=== PATIENT | female | born 1950 | race Caucasian/White ===

== ENCOUNTER 2017-10-22 11:11 | Inpatient (IN) | payer MEDICARE ==
[2017-10-22] MEDS ORDERED: ONDANSETRON 4 MG/2 ML VIAL IVP STA (11:51)
[2017-10-22] MEDS ORDERED: SODIUM CHLORIDE 0.9% 1,000 ML IV STA ×2 (11:51)
[2017-10-22 13:00] LABS: Basophils % (A) 0 %; Eosinophils # (A) 0.1 k/uL (0-0.7); Eosinophils % (A) 1 %; HCT 44.6 % (34.0-46.0); HGB 13.8 gm/dL (11.4-16.0); Hypochromasia Marked; Lymphocytes # (A) 1.1 k/uL (1.0-4.8); Lymphocytes % (A) 11 %; MCH 29.7 pg (25.0-35.0); MCV 95.7 fL (80.0-100.0); Mean Platelet Volume 8.2; Monocytes # (A) 0.7 k/uL (0-1.0); Monocytes % (A) 6 %; Neutrophils # (A) 8.3 k/uL (1.3-7.7); Neutrophils % (A) 80 %; RBC 4.67 m/uL (3.80-5.40); RDW 15.3 % (11.5-15.5); WBC 10.4 k/uL (3.8-10.6)
[2017-10-22 13:01] LABS: Appearance,Urine Cloudy (Clear); Bacteria,Urine Rare /hpf; Bilirubin,Urine 2+ (Negative); Blood,Urine Small (Negative); Color,Urine Yellow; Glucose,Urine (UA) Negative (Negative); Ketones,Urine Trace (Negative); Leukocyte Esterase,Urine Moderate (Negative); Mucus,Urine Rare /hpf; Nitrite,Urine Negative (Negative); Protein,Urine 2+ (Negative); RBC,Urine 8 /hpf (0-5); Squamous Epithelial Cell,Urine 3 /hpf (0-4); WBC,Urine 13 /hpf (0-5)
[2017-10-22 13:25] LABS: Poikilocytosis (M) Present
[2017-10-22 13:26] LABS: Platelet Count 84 k/uL (150-450)
[2017-10-22 13:39] LABS: ALT 36 U/L (9-52); AST 29 U/L (14-36); Albumin 4.4 g/dL (3.5-5.0); Alkaline Phosphatase 129 U/L (38-126); Calcium 8.8 mg/dL (8.4-10.2); Chloride 113 mmol/L (98-107); Magnesium 2.1 mg/dL (1.6-2.3); Sodium 139 mmol/L (137-145); Total Bilirubin 0.3 mg/dL (0.2-1.3); Total Protein 8.1 g/dL (6.3-8.2)
--- NOTE | 2017-10-22 13:51 | ED ---
Dizziness HPI - General Chief Complaint: Dizziness Stated Complaint: kidney problem Time Seen by Provider: 10/22/17 11:30 Source: patient, family Mode of arrival: wheelchair Limitations: no limitations - History of Present Illness Initial Comments: 67 years O female comes in with the complaints of dizziness and low blood pressure up her pressure was 78/53 she said she has been on a very strict ketones diet for a few weeks now and now she feels very field blood pressure was low she is complaining about the back pain she does have a back pain no headaches no chest pain no shortness of breath has mild discomfort in the epigastric area and she had a diarrhea for the last 24 hours, Dr. Olmstead concern about the renal failure - Related Data Home Medications Medication Instructions Recorded Confirmed Allopurinol [Zyloprim] 300 mg PO DAILY 10/22/17 10/22/17 Aspirin EC [Ecotrin] 325 mg PO DAILY 10/22/17 10/22/17 Ergocalciferol (Vitamin D2) 50,000 unit PO Q7D 10/22/17 10/22/17 [Vitamin D2] Lisinopril [Prinivil] 20 mg PO DAILY 10/22/17 10/22/17 Lisinopril [Zestril] 20 mg PO DAILY 10/22/17 10/22/17 Meloxicam [Mobic] 7.5 mg PO BID 10/22/17 10/22/17 Spironolactone-Hctz 25-25Mg 1 tab PO DAILY 10/22/17 10/22/17 [Aldactazide 25-25Mg] glipiZIDE [Glucotrol] 5 mg PO AC-BID 10/22/17 10/22/17 metFORMIN HCL [Glucophage] 500 mg PO BID 10/22/17 10/22/17 Allergies Allergy/AdvReac Type Severity Reaction Status Date / Time erythromycin base Allergy Rash/Hives Verified 10/22/17 11:29 Penicillins Allergy Rash/Hives Verified 10/22/17 11:29 Review of Systems ROS Statement: Those systems with pertinent positive or pertinent negative responses have been documented in the HPI. ROS Other: All systems not noted in ROS Statement are negative. Past Medical History Past Medical History: Diabetes Mellitus, Hyperlipidemia, Hypertension History of Any Multi-Drug Resistant Organisms: None Reported Past Surgical History: Section Past Psychological History: No Psychological Hx Reported Smoking Status: Never smoker Past Alcohol Use History: None Reported Past Drug Use History: None Reported General Exam - General Exam Comments Initial Comments: General: The patient is awake and alert, in no obvious distress Skin: Skin is warm and dry and no rashes or lesions are noted. Eye: Pupils are equal, round and reactive to light, extra-ocular movements are intact; there is normal conjunctiva bilaterally. Ears, nose, mouth and throat: There are moist mucous membranes and no oral lesions. Neck: The neck is supple, there is no tenderness or JVD. Cardiovascular: There is a regular rate and rhythm. No murmur, rub or gallop is appreciated. Respiratory: To auscultation bilateral, crease breath sounds bilateral Gastrointestinal: Soft, non-distended, non-tender abdomen without masses or organomegaly noted. There is no rebound or guarding present. Bowel sounds are unremarkable. Back: There is no tenderness to palpation in the midline. There is no obvious deformity. Musculoskeletal: Normal ROM, no tenderness, There is no pedal edema. There is no calf tenderness or swelling. No cords were appreciated. Neurological: CN II-XII intact, Cranial nerves III through XII are intact. There are no obvious motor or sensory deficits. Coordination appears grossly intact. Speech is normal. Psychiatric: Cooperative, appropriate mood & affect, normal judgment. Limitations: no limitations Course Vital Signs 10/22/17 10/22/17 11:26 13:22 Temperature 97.4 F L 98.7 F Pulse Rate 89 95 Respiratory 18 18 Rate Blood Pressure 78/53 76/40 O2 Sat by Pulse 99 97 Oximetry EKG Findings - EKG Comments: EKG Findings:: EKG is normal sinus tachycardia ventricular rate is 101 MS interval is 150 QRS duration is 78 QT/QTc is 358/464 review of this EKG does not reveal any ST elevation or ST depression Medical Decision Making - Lab Data Result diagrams: 10/22/17 12:17 10/22/17 12:17 Lab Results 10/22/17 10/22/17 10/22/17 Range/Units 11:45 12:17 12:17 WBC 10.4 (3.8-10.6) k/uL RBC 4.67 (3.80-5.40) m/uL Hgb 13.8 (11.4-16.0) gm/dL Hct 44.6 (34.0-46.0) % MCV 95.7 (80.0-100.0) fL MCH 29.7 (25.0-35.0) pg MCHC 31.0 (31.0-37.0) g/dL RDW 15.3 (11.5-15.5) % Plt Count 84 L (150-450) k/uL Neutrophils % 80 % Lymphocytes % 11 % Monocytes % 6 % Eosinophils % 1 % Basophils % 0 % Neutrophils # 8.3 H (1.3-7.7) k/uL Lymphocytes # 1.1 (1.0-4.8) k/uL Monocytes # 0.7 (0-1.0) k/uL Eosinophils # 0.1 (0-0.7) k/uL Basophils # 0.0 (0-0.2) k/uL Manual Slide Review Performed Hypochromasia Marked Poikilocytosis (manual Present Sodium 139 (137-145) mmol/L Potassium 6.0 H (3.5-5.1) mmol/L Chloride 113 H (98-107) mmol/L Carbon Dioxide <5 L* (22-30) mmol/L Anion Gap mmol/L BUN 115 H* (7-17) mg/dL Creatinine 7.26 H* (0.52-1.04) mg/dL Est GFR (CKD-EPI)AfAm 6 (>60 ml/min/1.73 sqM) Est GFR (CKD-EPI)NonAf 5 (>60 ml/min/1.73 sqM) Glucose 43 L* (74-99) mg/dL Plasma Lactic Acid Buzz (0.7-2.0) mmol/L Calcium 8.8 (8.4-10.2) mg/dL Phosphorus 9.9 H* (2.5-4.5) mg/dL Magnesium 2.1 (1.6-2.3) mg/dL Total Bilirubin 0.3 (0.2-1.3) mg/dL AST 29 (14-36) U/L ALT 36 (9-52) U/L Alkaline Phosphatase 129 H (38-126) U/L Troponin I (0.000-0.034) ng/mL Total Protein 8.1 (6.3-8.2) g/dL Albumin 4.4 (3.5-5.0) g/dL Urine Color Yellow Urine Appearance Cloudy H (Clear) Urine pH 5.0 (5.0-8.0) Ur Specific [place] 1.020 (1.001-1.035) Urine Protein 2+ H (Negative) Urine Glucose (UA) Negative (Negative) Urine Ketones Trace H (Negative) Urine Blood Small H (Negative) Urine Nitrite Negative (Negative) Urine Bilirubin 2+ H (Negative) Urine Urobilinogen 3.0 (<2.0) mg/dL Ur Leukocyte Esterase Moderate H (Negative) Urine RBC 8 H (0-5) /hpf Urine WBC 13 H (0-5) /hpf Ur Squamous Epith Cells 3 (0-4) /hpf Urine Bacteria Rare H (None) /hpf Urine Mucus Rare H (None) /hpf 10/22/17 10/22/17 Range/Units 12:17 12:17 WBC (3.8-10.6) k/uL RBC (3.80-5.40) m/uL Hgb (11.4-16.0) gm/dL Hct (34.0-46.0) % MCV (80.0-100.0) fL MCH (25.0-35.0) pg MCHC (31.0-37.0) g/dL RDW (11.5-15.5) % Plt Count (150-450) k/uL Neutrophils % % Lymphocytes % % Monocytes % % Eosinophils % % Basophils % % Neutrophils # (1.3-7.7) k/uL Lymphocytes # (1.0-4.8) k/uL Monocytes # (0-1.0) k/uL Eosinophils # (0-0.7) k/uL Basophils # (0-0.2) k/uL Manual Slide Review Hypochromasia Poikilocytosis (manual Sodium (137-145) mmol/L Potassium (3.5-5.1) mmol/L Chloride (98-107) mmol/L Carbon Dioxide (22-30) mmol/L Anion Gap mmol/L BUN (7-17) mg/dL Creatinine (0.52-1.04) mg/dL Est GFR (CKD-EPI)AfAm (>60 ml/min/1.73 sqM) Est GFR (CKD-EPI)NonAf (>60 ml/min/1.73 sqM) Glucose (74-99) mg/dL Plasma Lactic Acid Buzz 0.7 (0.7-2.0) mmol/L Calcium (8.4-10.2) mg/dL Phosphorus (2.5-4.5) mg/dL Magnesium (1.6-2.3) mg/dL Total Bilirubin (0.2-1.3) mg/dL AST (14-36) U/L ALT (9-52) U/L Alkaline Phosphatase (38-126) U/L Troponin I <0.012 (0.000-0.034) ng/mL Total Protein (6.3-8.2) g/dL Albumin (3.5-5.0) g/dL Urine Color Urine Appearance (Clear) Urine pH (5.0-8.0) Ur Specific [place] (1.001-1.035) Urine Protein (Negative) Urine Glucose (UA) (Negative) Urine Ketones (Negative) Urine Blood (Negative) Urine Nitrite (Negative) Urine Bilirubin (Negative) Urine Urobilinogen (<2.0) mg/dL Ur Leukocyte Esterase (Negative) Urine RBC (0-5) /hpf Urine WBC (0-5) /hpf Ur Squamous Epith Cells (0-4) /hpf Urine Bacteria (None) /hpf Urine Mucus (None) /hpf Critical Care Time Total Critical Care Time: 45 Critical Care Time: Patient was reassessed at 1330, CBC is normal, troponin is normal at this point compress metabolic panel is still pending UTI likely lactate is 0.7 and she had 2 L of fluid blood pressure still quite low and also noticed her platelets are low and concerned about Michael dehydration and concerned about gram-negative sepsis she be treated with broad-spectrum antibiotics now and since she has not responded to the fluids and will put her on some appendectomy drip and she be admitted to the hospital under Dr. Olmstead's service reactive, he from some critical low level value said her sugar is 43 CO2 is less than 5 creatinine is 7.26 BUN is 25 potassium is 6.1, this evening and will repeat all these labs will start her on now nor appendectomy drip because in spite of for 2 L of fluid her blood pressure has not gone higher than 80 systolic she be admitted to Dr. Olmstead's service, she will need to go to the ICU. Considering her low blood sugar patient was given an ampule dex 50 Disposition Clinical Impression: Acute kidney failure, Hypotension, Metabolic acidosis, Hypoglycemia Disposition: ADMITTED IP TO THIS HOSP Condition: Good Referrals: Al Olmstead MD [Primary Care Provider] - 1-2 days
[2017-10-22 13:53] LABS: Phosphorus 9.9 mg/dL (2.5-4.5)
[2017-10-22 13:54] LABS: Blood Urea Nitrogen 115 mg/dL (7-17); Carbon Dioxide <5 mmol/L (22-30); Glucose 43 mg/dL (74-99)
[2017-10-22] MEDS ORDERED: NALOXONE 0.4 MG/ML 1 ML VIAL IV PRN (13:58)
[2017-10-22] MEDS ORDERED: DEXTROSE 50%-WATER 50 ML SYRINGE IVP STA (14:02)
--- NOTE | 2017-10-22 14:03 | XR ---
EXAMINATION TYPE: XR chest 2V DATE OF EXAM: 10/22/2017 COMPARISON: NONE HISTORY: Hypotension and shortness of breath. Possible pneumonia. TECHNIQUE: Frontal and lateral views of the chest are obtained. FINDINGS: Opiate soft tissues partially obscure the lower lungs. Retrocardiac opacity is linear and f avored to represent atelectasis. Moderate multilevel degenerative changes of the thoracic spine are n oted. There is no pleural effusion or pneumothorax seen. The cardiac silhouette size is within norm al limits. The osseous structures are intact. IMPRESSION: Retrocardiac opacity on the lateral image overlying the thoracic spine is linear and fav ored to represent atelectasis, however early pneumonia is possible in the appropriate clinical settin g.
[2017-10-22] MEDS ORDERED: SODIUM CHLORIDE 0.9% 1,000 ML IV ONE (14:04)
[2017-10-22] MEDS ORDERED: cefTRIAXone 2,000 MG in SODIUM CHLORIDE 0.9% 100 ML IVPB STA (14:07)
[2017-10-22] MEDS ORDERED: cefTRIAXone IN SWFI 2,000 MG/20 ML SYRINGE IVP STA (14:10)
[2017-10-22] MEDS: NOREPINEPHRIN 4 MG-0.9% NS PMX 4 MG/250 ML ML IV SCH ×2 (14:27→21:48)
[2017-10-22 14:45] LABS: Glucose,Whole Blood 94 mg/dL (75-99)
[2017-10-22] MEDS ORDERED: ERGOCALCIFEROL 50,000 UNIT CAP PO SCH (15:00)
[2017-10-22 15:33] LABS: Glucose,Whole Blood 95 mg/dL (75-99)
[2017-10-22] MEDS ORDERED: ONDANSETRON 4 MG/2 ML VIAL IVP PRN (15:36)
--- NOTE | 2017-10-22 15:38 | P.HPIM ---
History of Present Illness H&P Date: 10/22/17 Chief Complaint: Not feeling well This is a 67-year-old female with a known past medical history of diabetes mellitus type 2, hyperlipidemia and hypertension. Patient has been on a keto diet for the last month. Patient reports that she tried this diet on her own. On Thursday patient started to really not feel well. She complained of nausea and dizziness headache and started to have diarrhea. Patient reports having multiple loose watery stools. She has not been on antibiotics recently. She continued to take her blood sugar and blood pressure medications. She does not check blood sugar or BP at home. Patient's symptoms continued to worsen she went to see Dr. Olmstead in the office and was sent to the emergency room. Patient will be admitted to the ICU. She also had complained of some lower back pain and also decrease in urine production. She reports making a small amount of urine this morning. Patient has been admitted to the hospital for acute renal failure. Creatinine was 7.26 and BUN was 1:15. She was also hypoglycemic with a blood sugar of 43. She received an amp of dextrose. Repeat blood sugar is 94. Potassium 6 chloride 113 CO2 less than 5 lactic acid 0.7 phosphorus 9.9 platelets 84. Patient denies any signs or symptoms of bleeding. She did have evidence of a UTI. She was started on Rocephin. Urine culture pending. Patient was hypotensive and has received a total of 2 L through fluid boluses. And she is currently on 10 mics of levo. Chest x-ray showing a retrocardiac opacity on the lateral image overlying the thoracic spine and favored to represent atelectasis, however early pneumonia is possible. Patient denies any cough fever chills or sweats. Patient has been admitted to the ICU and nephrology and critical care services have been consulted. Review of Systems Please refer to HPI otherwise unremarkable Past Medical History Past Medical History: Diabetes Mellitus, Hyperlipidemia, Hypertension History of Any Multi-Drug Resistant Organisms: None Reported Past Surgical History: Section Past Psychological History: No Psychological Hx Reported Smoking Status: Never smoker Past Alcohol Use History: None Reported Past Drug Use History: None Reported Medications and Allergies Home Medications Medication Instructions Recorded Confirmed Type Allopurinol [Zyloprim] 300 mg PO DAILY 10/22/17 10/22/17 History Aspirin EC [Ecotrin] 325 mg PO DAILY 10/22/17 10/22/17 History Ergocalciferol (Vitamin D2) 50,000 unit PO Q7D 10/22/17 10/22/17 History [Vitamin D2] Lisinopril [Prinivil] 20 mg PO DAILY 10/22/17 10/22/17 History Lisinopril [Zestril] 20 mg PO DAILY 10/22/17 10/22/17 History Meloxicam [Mobic] 7.5 mg PO BID 10/22/17 10/22/17 History Spironolactone-Hctz 25-25Mg 1 tab PO DAILY 10/22/17 10/22/17 History [Aldactazide 25-25Mg] glipiZIDE [Glucotrol] 5 mg PO AC-BID 10/22/17 10/22/17 History metFORMIN HCL [Glucophage] 500 mg PO BID 10/22/17 10/22/17 History Allergies Allergy/AdvReac Type Severity Reaction Status Date / Time erythromycin base Allergy Rash/Hives Verified 10/22/17 11:29 Penicillins Allergy Rash/Hives Verified 10/22/17 11:29 Physical Exam Vitals: Vital Signs Temp Pulse Resp BP Pulse Ox 10/22/17 14:22 82 81/39 10/22/17 14:06 85 16 76/38 100 10/22/17 13:22 98.7 F 95 18 76/40 97 10/22/17 11:26 97.4 F L 89 18 78/53 99 Intake and Output 10/22/17 10/22/17 10/22/17 06:59 14:59 22:59 Other: Weight 129.274 kg Head normocephalic Neck supple Lungs clear to auscultation bilaterally no wheezing or crackles Heart regular rate and rhythm S1-S2, no rub or gallop Abdomen is soft mild epigastric tenderness nondistended positive bowel sounds no hepatosplenomegaly Extremities no edema Neuro alert and orientated to 3 Results CBC & Chem 7: 10/22/17 12:17 10/22/17 12:17 Labs: Abnormal Lab Results - Last 24 Hours (Table) 10/22/17 10/22/17 10/22/17 Range/Units 11:45 12:17 12:17 Plt Count 84 L (150-450) k/uL Neutrophils # 8.3 H (1.3-7.7) k/uL Potassium 6.0 H (3.5-5.1) mmol/L Chloride 113 H (98-107) mmol/L Carbon Dioxide <5 L* (22-30) mmol/L BUN 115 H* (7-17) mg/dL Creatinine 7.26 H* (0.52-1.04) mg/dL Glucose 43 L* (74-99) mg/dL Phosphorus 9.9 H* (2.5-4.5) mg/dL Alkaline Phosphatase 129 H (38-126) U/L Urine Appearance Cloudy H (Clear) Urine Protein 2+ H (Negative) Urine Ketones Trace H (Negative) Urine Blood Small H (Negative) Urine Bilirubin 2+ H (Negative) Ur Leukocyte Esterase Moderate H (Negative) Urine RBC 8 H (0-5) /hpf Urine WBC 13 H (0-5) /hpf Urine Bacteria Rare H (None) /hpf Urine Mucus Rare H (None) /hpf Assessment and Plan Assessment: 1. Acute kidney injury: Creatinine 7.6 BUN 115. Patient is receiving IV fluids. Nephrology and critical care services has been consulted. Possibly secondary to diarrhea and medications. Metformin, Aldactazide, Mobic, lisinopril, and allopurinol have all been discontinued 2. Severe Metabolic acidosis: CO2 less than 5 likely related to patient's diarrhea. 3. Hypoglycemia: Possibly related to the keto diet as well as taking the metformin and glipizide. Diabetic medications have been discontinued. Place patient on Accu-Cheks. Patient received an amp of dextrose in the ER. Repeat blood sugar 94 4. Hypotensive likely related to volume depletion and blood pressure medications. Continue with IV fluids Continue IV fluids and levo. 5. UTI: Place patient on Rocephin. Check urine culture 6. Diarrhea check stool for C. diff 7. Hyperkalemia likely related to patient's acute kidney injury and the spironolactone. Nephrology consulted 8. Hyperphosphatemia: Secondary to acute kidney injury. Await nephrology recommendations 9. Thrombocytopenia: Exact etiology unclear. No evidence of bleeding. Possibly related to the acute UTI infection. Repeat labs in a.m. 10. History of diabetes mellitus type 2 11. History of essential hypertension 12. History of gout due to her acute kidney injury will hold the allopurinol 13. Morbid obesity: BMI 55.7 GI prophylaxis Protonix and DVT prophylaxis SCDs. Time with Patient: Greater than 30 (Greater than 60% of the total time spent in counseling and coordination of care.I performed an examination of the patient and discussed their management with the physician Gas Operator. I have reviewed the Physician Gas Operator's notes and agree with the documented findings and plan of care)
[2017-10-22 16:08] LABS: Glucose,Whole Blood 126 mg/dL (75-99)
[2017-10-22] MEDS ORDERED: SODIUM CHLORIDE 0.9% 2,000 ML IV ONE (16:08)
[2017-10-22] MEDS ORDERED: SODIUM BICARB 8.4% 50 ML SYR (1 MEQ/ML) IV STA (16:13)
[2017-10-22 16:19] LABS: ALT 44 U/L (9-52); AST 37 U/L (14-36); Albumin 4.1 g/dL (3.5-5.0); Alkaline Phosphatase 130 U/L (38-126); Amylase 167 U/L (30-110); Calcium 8.2 mg/dL (8.4-10.2); Chloride 112 mmol/L (98-107); Glucose 116 mg/dL (74-99); Lipase 916 U/L (23-300); Magnesium 1.9 mg/dL (1.6-2.3); Potassium 6.1 mmol/L (3.5-5.1); Sodium 139 mmol/L (137-145); Total Bilirubin 0.3 mg/dL (0.2-1.3); Total Protein 7.5 g/dL (6.3-8.2)
[2017-10-22 16:29] LABS: Phosphorus 9.2 mg/dL (2.5-4.5)
[2017-10-22 16:30] LABS: Blood Urea Nitrogen 112 mg/dL (7-17); Carbon Dioxide <5 mmol/L (22-30)
[2017-10-22] MEDS ORDERED: DEXTROSE 5% IN WATER 1,000 ML with SODIUM BICARB (1 MEQ/ML) 150 ML IV ONE (16:30)
--- NOTE | 2017-10-22 17:04 | P.CNPUL ---
History of Present Illness Consult date: 10/22/17 Chief complaint: Generalized weakness, dehydration and electrode disturbance History of present illness: A 67-year-old female patient, morbidly obese, BMI 55.7, diabetic along with history of hypertension and hyperlipidemia presented to her primary care physician's office because of generalized weakness, dehydration, diarrhea and drop in urine output. At the same time the patient was having increased nausea and dizziness and headache and feeling sick in general. The patient was immediately sent to the emergency department and the patient was found to have markedly abnormalities in her blood work. First of all, the patient was found to be hypothermic, hypotensive with a systolic in the mid 70s, and electrolytes showing a serum bicarb level of less than 5, potassium level of 6.0, and acute kidney injury with a creatinine of 7.26 with a BN of 115 and the patient's blood sugar was 43. Apparently, the patient was on a ketotic diet that she had been implementing over the past or weeks. Along with this diet the patient was able to lose around 24 pounds. She did not get the advisability dilatation. She'll obtain this diet BY herself and she was cutting her carbs and cancer treating mainly on protein rich foods. Approximately a week ago she started having these symptoms in her condition progressively got worse. In addition she started developing diarrhea and she reports liquid diarrhea around once every 2-3 hours and it got worse over this past few days. She became extremely dehydrated. Note that she is also on LISA inhibitor's for blood pressure control. With all these issues, she presented to the hospital. No chest pain. No angina. No pleurisy. No cough or sputum production. She had drop in urine output. The Bingham catheter was inserted initially urine output was minimal. No history of alcoholism. Substance abuse. She is on metformin for blood sugar control. Hypoglycemia was treated with D50 pushes which brought up her blood sugars nicely. The patient urinalysis showed only trace ketones. There was +2 glucose and a white cells. Chest x-ray reveals a segmental atelectatic changes and left lung base. Underlying pneumonia is felt to be less likely. She is receiving external warming. She received a total of 2 L of IV fluid in the emergency department and currently she is being placed on a bicarb infusion. The external warming has been done and the patient's temperature is, 97. She is awake and alert and she is following commands and answering questions appropriately. No altered mentation. No syncope. No loss in consciousness. No falls. No wounds in lower extremities. No open sores. No other complaints other things mentioned above. She has a remote history of colon cancer with a previous colectomy for chemotherapy and [place] [facility]. Hemodynamically, the patient is currently receiving IV fluids. She had to be placed on pressors and currently she is on 70 mics of norepinephrine infusion which is being infused in Her right upper extremity. We will able to wean off the pressors and the patient is producing adequate amount of urine output. Review of Systems Constitutional: Reports fatigue, Reports lethargy, Reports weakness, Reports weight loss Eyes: denies blurred vision, denies bulging eye, denies decreased vision Ears: deny: decreased hearing, ear discharge, earache Ears, nose, mouth and throat: Denies headache, Denies sore throat Cardiovascular: Reports dyspnea on exertion Respiratory: Reports dyspnea Gastrointestinal: Reports diarrhea, Reports nausea Genitourinary: Denies dysuria, Denies hematuria Musculoskeletal: Reports as per HPI Musculoskeletal: absent: ankle pain, ankle stiffness, ankle swelling Integumentary: Denies pruritus, Denies rash Neurological: Reports weakness Psychiatric: Denies anxiety, Denies depression Endocrine: Denies fatigue, Denies weight change Hematologic/Lymphatic: Reports as per HPI Allergic/Immunologic: Reports as per HPI Past Medical History Past Medical History: Diabetes Mellitus, Hyperlipidemia, Hypertension Additional Past Medical History / Comment(s): Morbid obesity, diabetes mellitus , hypertension, hyperlipidemia, colon cancer status post colectomy followed by systemic chemotherapy in 2000, acid reflux and heartburn, nephrolithiasis History of Any Multi-Drug Resistant Organisms: None Reported Past Surgical History: Section Additional Past Surgical History / Comment(s): "stated 1/3 of colon removed 2000 d/t cancer", [facility] chest-since removed, colonoscopy, x3 c-sections Past Anesthesia/Blood Transfusion Reactions: No Reported Reaction Smoking Status: Never smoker - Past Family History Mother Family Medical History: Dementia Additional Family Medical History / Comment(s): low bp Father Family Medical History: Diabetes Mellitus Medications and Allergies Home Medications Medication Instructions Recorded Confirmed Type Allopurinol [Zyloprim] 300 mg PO DAILY 10/22/17 10/22/17 History Aspirin EC [Ecotrin] 325 mg PO DAILY 10/22/17 10/22/17 History Ergocalciferol (Vitamin D2) 50,000 unit PO Q7D 10/22/17 10/22/17 History [Vitamin D2] Lisinopril [Prinivil] 20 mg PO DAILY 10/22/17 10/22/17 History Lisinopril [Zestril] 20 mg PO DAILY 10/22/17 10/22/17 History Meloxicam [Mobic] 7.5 mg PO BID 10/22/17 10/22/17 History Spironolactone-Hctz 25-25Mg 1 tab PO DAILY 10/22/17 10/22/17 History [Aldactazide 25-25Mg] glipiZIDE [Glucotrol] 5 mg PO AC-BID 10/22/17 10/22/17 History metFORMIN HCL [Glucophage] 500 mg PO BID 10/22/17 10/22/17 History Allergies Allergy/AdvReac Type Severity Reaction Status Date / Time erythromycin base Allergy Rash/Hives Verified 10/22/17 11:29 Penicillins Allergy Rash/Hives Verified 10/22/17 11:29 Physical Exam Vitals: Vital Signs Temp Pulse Resp BP Pulse Ox 10/22/17 16:00 81 26 H 101/65 10/22/17 15:45 84 30 H 88/43 10/22/17 15:30 93.6 F L 95 29 H 88/43 100 10/22/17 15:15 91 30 H 100/37 100 10/22/17 14:45 97.8 F 10/22/17 14:22 82 81/39 10/22/17 14:06 85 16 76/38 100 10/22/17 13:22 98.7 F 95 18 76/40 97 10/22/17 11:26 97.4 F L 89 18 78/53 99 Intake and Output 10/22/17 10/22/17 10/22/17 06:59 14:59 22:59 Intake Total 1000 Output Total 50 Balance 950 Intake: IV 1000 Sodium Chloride 0.9% 1, 1000 000 ml @ 999 mls/hr IV . Q1H1M ONE Rx#:[id number] Output: Urine 50 Other: Weight 129.274 kg Gen. appearance the patient is morbidly obese, comfortable alert and awake following commands and answering questions appropriately. 9 acute respiratory distress. Head exam was generally normal. There was no scleral icterus or corneal arcus. Mucous membranes were moist. Neck is supple and there is significant crowding of the posterior pharynx typical of an underlying obstructive sleep apnea. Lungs were clear to auscultation and percussion, and with normal diaphragmatic excursion. No wheezes or rales were noted. Breath sounds are diminished in lung bases bilaterally. Cardiac exam revealed the PMI to be normally situated and sized. The rhythm was regular and no extrasystoles were noted during several minutes of auscultation. The first and second heart sounds were normal and physiologic splitting of the second heart sound was noted. There were no murmurs, rubs, clicks, or gallops. Abdomen the patient is morbidly obese and orders cannot be accurately palpated. There is no direct tenderness, rebound tenderness or guarding at this point. Examination of the extremities revealed easily palpable radial, femoral and pedal pulses. There was no cyanosis, clubbing or edema. Examination of the skin revealed no evidence of significant rashes, suspicious appearing nevi or other concerning lesions. Neurologically the patient is awake and alert and is no focal neurological deficits in the creatinine nerves are intact. Results - Laboratory Findings CBC and BMP: 10/22/17 12:17 10/22/17 15:46 Abnormal lab findings: Abnormal Labs 10/22/17 10/22/17 10/22/17 11:45 12:17 12:17 Plt Count 84 L Neutrophils # 8.3 H Potassium 6.0 H Chloride 113 H Carbon Dioxide <5 L* BUN 115 H* Creatinine 7.26 H* Glucose 43 L* POC Glucose (mg/dL) Calcium Phosphorus 9.9 H* AST Alkaline Phosphatase 129 H Amylase Lipase Urine Appearance Cloudy H Urine Protein 2+ H Urine Ketones Trace H Urine Blood Small H Urine Bilirubin 2+ H Ur Leukocyte Esterase Moderate H Urine RBC 8 H Urine WBC 13 H Urine Bacteria Rare H Urine Mucus Rare H 10/22/17 10/22/17 15:46 16:04 Plt Count Neutrophils # Potassium 6.1 H Chloride 112 H Carbon Dioxide <5 L* BUN 112 H* Creatinine 6.61 H* Glucose 116 H POC Glucose (mg/dL) 126 H Calcium 8.2 L Phosphorus 9.2 H* AST 37 H Alkaline Phosphatase 130 H Amylase 167 H Lipase 916 H Urine Appearance Urine Protein Urine Ketones Urine Blood Urine Bilirubin Ur Leukocyte Esterase Urine RBC Urine WBC Urine Bacteria Urine Mucus - Diagnostic Findings Chest x-ray: image reviewed Assessment and Plan Plan: Assessment 1 acute kidney injury, multifactorial. The patient was excessively dehydrated probably related to diarrhea. In addition the patient was taken LISA inhibitor and occasional nonsteroidal anti-inflammatory medication. Currently she is an acute kidney injury at she is nonoliguric and the patient's urine output is improving with fluid resuscitation and pressors 2 acute hypotension, most likely hypovolemic in nature and the patient is point IV fluids and she is also on 70 mics of norepinephrine infusion for blood pressure control. 3 acute hyperkalemia without any acute EKG changes secondary to above 4 acute diarrhea with liquidy bowel movement. No history of any antibiotic intake. 5 severe with doubling acidosis with a component of anion and anion gap metabolic acidosis, will be started on a bicarb drip 6 morbid obesity with a BMI 55.7 7 ketotic diet for weight loss 8 hypoglycemia probably related to metformin effect in the setting of renal failure, treated 9 hypertension, per history 10 diabetes mellitus type 2, per history 11 thrombocytopenia 12 atelectatic changes and left lung base, pneumonia doubtful 13 hypothermia, receiving external warming with subsequent improvement in the body temperature 14 colon cancer with a previous colectomy followed by systemic chemotherapy and the patient is in remission Plan Continue fluid resuscitation. The patient will be receiving D5 bicarb infusion rate of 150 mL an hour. She already received 2 L of IV fluids and she'll be receiving a amp of IV sodium bicarb push. We'll monitor the electrolytes. We' ll monitor the potassium level. Potassium level is still elevated yet is not causing any cardiac toxicity and anticipate potassium level is improved with improvement of her acidosis. The hypoglycemia was treated. The patient's blood sugars improved and the patient will be on a D5 bicarb infusion. We'll monitor the electrolytes. Monitor the metabolic acidosis. Monitor body temperature. Empiric antibiotic coverage with Rocephin. Check stool for C. difficile to patient continues to have diarrhea. Monitor phosphorus levels. Obtain ultrasound of the kidneys. Keep the Bingham catheter in place and monitor the urine output. Keep pressors and gradually wean it down. I suggested a triple lumen catheter insertion and the patient was against the idea despite me explaining to her the advantages of having alignment this. We'll establish a second and third line if possible, essentially peripheral lines and we'll insert a triple lumen catheter if this become an absolute medical necessity. We should be able to manage her right now with peripheral lines as long as the pressor doses is not quite high and the patient is improving with improvement in urine output. Check thyroid function tests. Check cardiac enzymes. We'll continue to follow. Time with Patient: Greater than 30
[2017-10-22] MEDS ORDERED: glipiZIDE 5 MG TAB PO SCH (17:30)
--- NOTE | 2017-10-22 17:55 | US ---
EXAMINATION TYPE: US kidneys/renal and bladder DATE OF EXAM: 10/22/2017 COMPARISON: NONE CLINICAL HISTORY: LITA. Acute renal failure severe metabolic acidosis. Exam limitations due to body haney bitus and patient unable to roll. EXAM MEASUREMENTS: Right Kidney: 10.2 x 5.1 x 4.8 cm Left Kidney: 10.5 x 5.9 x 5.2 cm Right Kidney: No hydronephrosis or masses seen Left Kidney: Lobulated cortex no hydronephrosis seen. Bladder: Patient has cathter in. IMPRESSION: No evidence of renal mass or obstruction. No significant atrophy.
--- NOTE | 2017-10-22 18:24 | XR ---
EXAMINATION TYPE: XR chest 1V portable DATE OF EXAM: 10/22/2017 COMPARISON: Today HISTORY: Line placement TECHNIQUE: Single frontal view of the chest is obtained. FINDINGS: There is right jugular catheter with the tip over the right atrium. There is no pneumothor ax. Lungs are clear of consolidation. There is no heart failure. IMPRESSION: Catheter tip appears in good position.
--- NOTE | 2017-10-22 18:25 | OP ---
OPERATIVE REPORT TRIPLE LUMEN CATHETER PLACEMENT: Indication Hemodynamic monitoring/Intravenous access. PREOPERATIVE DIAGNOSIS: Hypovolemic shock. POSTOPERATIVE DIAGNOSIS: Hypovolemic shock. A time-out was completed verifying correct patient, procedure, site, positioning, and implant(s) or special equipment if applicable. The patient was placed in a dependent position appropriate for triple lumen catheter placement based on the vein to be cannulated. The patient's right neck was prepped and draped in sterile fashion. 1% Lidocaine was used to anesthetize the surrounding skin area. A triple lumen 9F Cordis catheter was introduced into the right internal jugular vein using Seldinger technique. The catheter was threaded smoothly over the guide wire and appropriate blood return was obtained. Each lumen of the catheter was evacuated of air and flushed with sterile saline. The catheter was then sutured in place to the skin and a sterile dressing applied. Perfusion to the extremity distal to the point of catheter insertion was checked and found to be adequate. Chest x-ray showed no complications, no pneumothorax. MMODL / IJN: [id number] /
[2017-10-22 18:33] LABS: Glucose,Whole Blood 153 mg/dL (75-99)
[2017-10-22 20:04] LABS: Glucose,Whole Blood 154 mg/dL (75-99)
[2017-10-22] MEDS: HEPARIN SODIUM,PORCINE 5,000 UNIT/ML 1 ML VIAL SQ SCH (20:45)
[2017-10-22 22:18] LABS: Basophils % (A) 0 %; Eosinophils # (A) 0.1 k/uL (0-0.7); Eosinophils % (A) 1 %; HGB 12.1 gm/dL (11.4-16.0); Hypochromasia Marked; Lymphocytes % (A) 13 %; MCH 29.6 pg (25.0-35.0); MCV 95.6 fL (80.0-100.0); Mean Platelet Volume 7.7; Monocytes # (A) 0.6 k/uL (0-1.0); Monocytes % (A) 7 %; Neutrophils # (A) 5.9 k/uL (1.3-7.7); Neutrophils % (A) 77 %; Platelet Count 94 k/uL (150-450); RBC 4.08 m/uL (3.80-5.40); RDW 15.2 % (11.5-15.5); WBC 7.6 k/uL (3.8-10.6)
[2017-10-22 22:29] LABS: Albumin 3.2 g/dL (3.5-5.0); Calcium 7.5 mg/dL (8.4-10.2); Magnesium 1.7 mg/dL (1.6-2.3); Total Bilirubin 0.3 mg/dL (0.2-1.3); Total Protein 6.2 g/dL (6.3-8.2)
[2017-10-22 22:31] LABS: Phosphorus 6.5 mg/dL (2.5-4.5); Potassium 4.9 mmol/L (3.5-5.1)
[2017-10-23 00:22] LABS: Glucose,Whole Blood 91 mg/dL (75-99)
[2017-10-23] MEDS: HEPARIN SODIUM,PORCINE 5,000 UNIT/ML 1 ML VIAL SQ SCH ×4 (02:13→23:19)
[2017-10-23 04:30] LABS: Glucose,Whole Blood 113 mg/dL (75-99)
[2017-10-23 04:58] LABS: Basophils % (A) 0 %; Eosinophils # (A) 0.1 k/uL (0-0.7); Eosinophils % (A) 1 %; HGB 11.9 gm/dL (11.4-16.0); Lymphocytes % (A) 15 %; MCH 29.5 pg (25.0-35.0); MCHC 32.1 g/dL (31.0-37.0); MCV 91.8 fL (80.0-100.0); Mean Platelet Volume 8.1; Monocytes # (A) 0.5 k/uL (0-1.0); Monocytes % (A) 8 %; Neutrophils # (A) 4.8 k/uL (1.3-7.7); Neutrophils % (A) 74 %; Platelet Count 105 k/uL (150-450); RBC 4.03 m/uL (3.80-5.40); RDW 15.3 % (11.5-15.5); WBC 6.4 k/uL (3.8-10.6)
[2017-10-23] MEDS: DEXTROSE 5% IN WATER 1,000 ML with SODIUM BICARB (1 MEQ/ML) 150 ML IV SCH ×2 (05:09→15:45)
[2017-10-23 05:10] LABS: Calcium 8.1 mg/dL (8.4-10.2); Magnesium 1.7 mg/dL (1.6-2.3); Phosphorus 5.6 mg/dL (2.5-4.5); Potassium 4.8 mmol/L (3.5-5.1)
[2017-10-23 05:44] LABS: Hemoglobin A1C 5.6 % (4.0-6.0)
[2017-10-23] MEDS: NOREPINEPHRIN 4 MG-0.9% NS PMX 4 MG/250 ML ML IV SCH (06:41)
--- NOTE | 2017-10-23 07:35 | XR ---
EXAMINATION TYPE: XR chest 1V DATE OF EXAM: 10/23/2017 CLINICAL HISTORY: Difficulty breathing progress study. TECHNIQUE: Single AP portable upright view of the chest is obtained. COMPARISON: Chest x-ray from one day earlier and older studies. FINDINGS: There is right internal jugular central venous catheter terminating in right atrium. There is persistent cardiomegaly with perhaps mild central vascular congestion and patchy left basilar ate lectatic change. No large pleural effusion or pneumothorax is seen bilaterally. Right lung is clear. Osseous structures are intact. Ectatic and atherosclerotic aorta is redemonstrated. IMPRESSION: Overall stable findings, cardiomegaly with perhaps mild central vascular congestion and patchy left basilar atelectatic change. Correlate for CHF exacerbation.
[2017-10-23 08:07] LABS: Glucose,Whole Blood 177 mg/dL (75-99)
[2017-10-23] MEDS: PANTOPRAZOLE 40 MG TABLET PO SCH (08:07)
[2017-10-23] MEDS: cefTRIAXone IN SWFI 1,000 MG/10 ML SYRINGE IVP SCH (08:07)
[2017-10-23] MEDS: ASPIRIN 325 MG TAB PO SCH (08:07)
--- NOTE | 2017-10-23 08:50 | CONS ---
CONSULTATION REASON FOR CONSULT: Severe metabolic acidosis, renal failure and hyperkalemia. HISTORY OF PRESENT ILLNESS: The patient is a 67-year-old female with history of obesity, who was on a ketogenic diet for about a month. The patient does have underlying history of diabetes. She was admitted to the hospital with complaints of increased weakness. Patient was also having dizziness. She had some diarrhea and did not feel good. She was found to have serum creatinine of 7.26 on initial admission. Her CO2 was less than 5 and potassium was 6.0 on initial admission. The patient has been admitted to the ICU. She was also hypotensive, currently on 10 mcg of Levophed. There is suggestion of a urinary tract infection. The patient is maintained on bicarb drip. She has had good urine output. Serum creatinine is down to 3.3 now. CO2 is up to 8 on labs. Overall, patient states she is feeling better. PAST MEDICAL HISTORY: Type 2 diabetes, hypertension, obesity, hyperlipidemia. PAST SURGICAL HISTORY: . SOCIAL HISTORY: Social history is negative for smoking, drug abuse or alcohol abuse. MEDICATIONS: Medications at home included Zyloprim, Ecotrin, Prinivil, Mobic, Zestril, Glucotrol, Glucophage, and Aldactazide. ALLERGIES: Allergies include PENICILLIN and ERYTHROMYCIN, both of which cause rash and hives. REVIEW OF SYSTEMS: As per HPI. Other systems negative. PHYSICAL EXAMINATION: On examination, patient is currently comfortable, awake, alert, and oriented x3, not in any acute distress. Blood pressure is 103/63, heart rate 107 per minute. Patient is afebrile. EXAMINATION OF THE HEART: S1, S2. EXAMINATION OF THE LUNGS: Bilateral breath sounds are heard. Abdomen is soft, nontender, obese. Examination of lower extremities shows no evidence of edema. [employer] exam is intact. Patient moving all 4 extremities. LAB: Labs show sodium 142, potassium 4.8, chloride 118, CO2 is 8, BUN 93, serum creatinine 3.3, phosphorus 5.6, magnesium 1.7. Albumin 3.2. UA shows 2+ protein, trace blood, WBCs 13. Chest x-ray on admission shows retrocardiac opacity on the lateral image suggestive of atelectasis, possible pneumonia. Ultrasound of the kidneys showed no evidence of hydronephrosis or stones. ASSESSMENT: 1. Acute kidney injury secondary to hypotension hypoperfusion in the setting of use of LISA inhibitors along with the NSAIDs as well prior to admission. Renal function is now improving. Patient is nonoliguric. Continue with aggressive IV hydration. 2. Severe metabolic acidosis, multifactorial, including the renal failure, diarrhea with gastrointestinal fluid loss as well as the extreme ketogenic diet that patient was recently on. Her urine was positive for ketones. She is currently maintained on IV bicarb and her acidosis is improving. 3. Hyperkalemia associated with acute kidney injury, use of LISA inhibitors and NSAIDs, now improved. 4. Hyperphosphatemia associated with renal failure also improving with improving renal function. 5. Hypotension associated with hypovolemia and underlying infection. 6. Sepsis secondary to either pneumonia or urinary tract infection, maintained on empiric antibiotics. 7. Type 2 diabetes. 8. Obesity on ketogenic diet for about 1 month prior to admission. PLAN: Continue IV bicarb. Continue to avoid NSAIDs and LISA inhibitors. Avoid other nephrotoxic agents. The patient is advised to avoid NSAIDs and hold off on the ketogenic diet for now. Thank you for this consultation. We will continue to follow the patient with you during her hospitalization. MMODL / IJN: [id number] /
[2017-10-23] MEDS ORDERED: LISINOPRIL 20 MG TAB PO SCH (09:00)
[2017-10-23] MEDS ORDERED: ALLOPURINOL 300 MG TAB PO SCH (09:00)
[2017-10-23 09:12] LABS: Amylase 116 U/L (30-110); Lipase 725 U/L (23-300)
[2017-10-23] MEDS: INSULIN ASPART 100 UNIT/ML 1 ML 10 ML VIAL SQ SCH ×5 (09:32→23:26)
--- NOTE | 2017-10-23 10:15 | P.PN ---
Subjective Progress Note Date: 10/23/17 This is a 67-year-old female with a known past medical history of diabetes mellitus type 2, hyperlipidemia and hypertension. Patient has been on a keto diet for the last month. Patient reports that she tried this diet on her own. On Thursday patient started to really not feel well. She complained of nausea and dizziness headache and started to have diarrhea. Patient reports having multiple loose watery stools. She has not been on antibiotics recently. She continued to take her blood sugar and blood pressure medications. She does not check blood sugar or BP at home. Patient's symptoms continued to worsen she went to see Dr. Olmstead in the office and was sent to the emergency room. Patient will be admitted to the ICU. She also had complained of some lower back pain and also decrease in urine production. She reports making a small amount of urine this morning. Patient has been admitted to the hospital for acute renal failure. Creatinine was 7.26 and BUN was 1:15. She was also hypoglycemic with a blood sugar of 43. She received an amp of dextrose. Repeat blood sugar is 94. Potassium 6 chloride 113 CO2 less than 5 lactic acid 0.7 phosphorus 9.9 platelets 84. Patient denies any signs or symptoms of bleeding. She did have evidence of a UTI. She was started on Rocephin. Urine culture pending. Patient was hypotensive and has received a total of 2 L through fluid boluses. And she is currently on 10 mics of levo. Chest x-ray showing a retrocardiac opacity on the lateral image overlying the thoracic spine and favored to represent atelectasis, however early pneumonia is possible. Patient denies any cough fever chills or sweats. Patient has been admitted to the ICU and nephrology and critical care services have been consulted. 10/23/2017 patient remains in the ICU on 4 mics of levo and D5 with sodium bicarbonate drip. Patient's urine output has shown improvement. She's no longer hypothermic. Lowest temp 93.6. Patient has had no further diarrhea. Denies any abdominal pain. Denies any nausea or vomiting. Denies any chest pain or shortness of breath. Is being followed by pulmonary service and nephrology. CO2 has gone up from 5 to 8, creatinine has decreased from 7.26 down to 3.30 Objective - Vital Signs Vital signs: Vital Signs Temp 98 F 10/23/17 08:00 Pulse 96 10/23/17 08:00 Resp 16 10/23/17 08:00 BP 130/70 10/23/17 08:00 Pulse Ox 95 10/23/17 08:01 Intake & Output 10/22/17 10/23/17 10/23/17 18:59 06:59 18:59 Intake Total 4242.125 1525.000 262.187 Output Total 500 3425 600 Balance 3742.125 -1900.000 -337.813 Weight 129 kg 131 kg Intake: IV 4000 1100 200 Dextrose 5% in Water 1, 1100 200 000 ml @ 100 mls/hr IV . [id number] ONE with Sodium Bicarb (1 Meq/ml) 150 ml Rx#:[id number] Sodium Chloride 0.9% 1, 4000 000 ml @ 999 mls/hr IV . Q1H1M ONE Rx#:[id number] Intake, IV Titration 242.125 425.000 62.187 Amount Dextrose 5% in Water 1, 100 100 000 ml @ 100 mls/hr IV . [id number] ONE with Sodium Bicarb (1 Meq/ml) 150 ml Rx#:[id number] Norepinephrin 4 mg-0.9% 142.125 325.000 62.187 Ns Pmx 4 mg In 250 ml @ Titrate IV .Q0M [facility] Rx#: [id number] Output: Urine 500 3425 600 Other: Voiding Method Indwelling Catheter Indwelling Catheter Indwelling Catheter - Exam Head normocephalic Neck supple Lungs clear to auscultation bilaterally no wheezing or crackles Heart regular rate and rhythm S1-S2, no rub or gallop Abdomen is soft nontender nondistended positive bowel sounds no hepatosplenomegaly Extremities no edema Neuro alert and orientated to 3 - Labs CBC & Chem 7: 10/23/17 04:31 10/23/17 04:31 Labs: Abnormal Lab Results - Last 24 Hours (Table) 10/22/17 10/22/17 10/22/17 Range/Units 11:45 12:17 12:17 Plt Count 84 L (150-450) k/uL Neutrophils # 8.3 H (1.3-7.7) k/uL Potassium 6.0 H (3.5-5.1) mmol/L Chloride 113 H (98-107) mmol/L Carbon Dioxide <5 L* (22-30) mmol/L BUN 115 H* (7-17) mg/dL Creatinine 7.26 H* (0.52-1.04) mg/dL Glucose 43 L* (74-99) mg/dL POC Glucose (mg/dL) (75-99) mg/dL Calcium (8.4-10.2) mg/dL Phosphorus 9.9 H* (2.5-4.5) mg/dL AST (14-36) U/L Alkaline Phosphatase 129 H (38-126) U/L Total Protein (6.3-8.2) g/dL Albumin (3.5-5.0) g/dL Amylase (30-110) U/L Lipase (23-300) U/L Urine Appearance Cloudy H (Clear) Urine Protein 2+ H (Negative) Urine Ketones Trace H (Negative) Urine Blood Small H (Negative) Urine Bilirubin 2+ H (Negative) Ur Leukocyte Esterase Moderate H (Negative) Urine RBC 8 H (0-5) /hpf Urine WBC 13 H (0-5) /hpf Urine Bacteria Rare H (None) /hpf Urine Mucus Rare H (None) /hpf 10/22/17 10/22/17 10/22/17 Range/Units 15:46 16:04 18:31 Plt Count (150-450) k/uL Neutrophils # (1.3-7.7) k/uL Potassium 6.1 H (3.5-5.1) mmol/L Chloride 112 H (98-107) mmol/L Carbon Dioxide <5 L* (22-30) mmol/L BUN 112 H* (7-17) mg/dL Creatinine 6.61 H* (0.52-1.04) mg/dL Glucose 116 H (74-99) mg/dL POC Glucose (mg/dL) 126 H 153 H (75-99) mg/dL Calcium 8.2 L (8.4-10.2) mg/dL Phosphorus 9.2 H* (2.5-4.5) mg/dL AST 37 H (14-36) U/L Alkaline Phosphatase 130 H (38-126) U/L Total Protein (6.3-8.2) g/dL Albumin (3.5-5.0) g/dL Amylase 167 H (30-110) U/L Lipase 916 H (23-300) U/L Urine Appearance (Clear) Urine Protein (Negative) Urine Ketones (Negative) Urine Blood (Negative) Urine Bilirubin (Negative) Ur Leukocyte Esterase (Negative) Urine RBC (0-5) /hpf Urine WBC (0-5) /hpf Urine Bacteria (None) /hpf Urine Mucus (None) /hpf 10/22/17 10/22/17 10/22/17 Range/Units 20:02 22:08 22:08 Plt Count 94 L (150-450) k/uL Neutrophils # (1.3-7.7) k/uL Potassium (3.5-5.1) mmol/L Chloride 116 H (98-107) mmol/L Carbon Dioxide 6 L* (22-30) mmol/L BUN 100 H* (7-17) mg/dL Creatinine 4.42 H (0.52-1.04) mg/dL Glucose 107 H (74-99) mg/dL POC Glucose (mg/dL) 154 H (75-99) mg/dL Calcium 7.5 L (8.4-10.2) mg/dL Phosphorus 6.5 H (2.5-4.5) mg/dL AST (14-36) U/L Alkaline Phosphatase (38-126) U/L Total Protein 6.2 L (6.3-8.2) g/dL Albumin 3.2 L (3.5-5.0) g/dL Amylase (30-110) U/L Lipase (23-300) U/L Urine Appearance (Clear) Urine Protein (Negative) Urine Ketones (Negative) Urine Blood (Negative) Urine Bilirubin (Negative) Ur Leukocyte Esterase (Negative) Urine RBC (0-5) /hpf Urine WBC (0-5) /hpf Urine Bacteria (None) /hpf Urine Mucus (None) /hpf 10/23/17 10/23/17 10/23/17 Range/Units 04:28 04:31 04:31 Plt Count 105 L (150-450) k/uL Neutrophils # (1.3-7.7) k/uL Potassium (3.5-5.1) mmol/L Chloride 118 H (98-107) mmol/L Carbon Dioxide 8 L* (22-30) mmol/L BUN 93 H* (7-17) mg/dL Creatinine 3.30 H (0.52-1.04) mg/dL Glucose 127 H (74-99) mg/dL POC Glucose (mg/dL) 113 H (75-99) mg/dL Calcium 8.1 L (8.4-10.2) mg/dL Phosphorus 5.6 H (2.5-4.5) mg/dL AST (14-36) U/L Alkaline Phosphatase (38-126) U/L Total Protein (6.3-8.2) g/dL Albumin (3.5-5.0) g/dL Amylase (30-110) U/L Lipase (23-300) U/L Urine Appearance (Clear) Urine Protein (Negative) Urine Ketones (Negative) Urine Blood (Negative) Urine Bilirubin (Negative) Ur Leukocyte Esterase (Negative) Urine RBC (0-5) /hpf Urine WBC (0-5) /hpf Urine Bacteria (None) /hpf Urine Mucus (None) /hpf 10/23/17 Range/Units 08:06 Plt Count (150-450) k/uL Neutrophils # (1.3-7.7) k/uL Potassium (3.5-5.1) mmol/L Chloride (98-107) mmol/L Carbon Dioxide (22-30) mmol/L BUN (7-17) mg/dL Creatinine (0.52-1.04) mg/dL Glucose (74-99) mg/dL POC Glucose (mg/dL) 177 H (75-99) mg/dL Calcium (8.4-10.2) mg/dL Phosphorus (2.5-4.5) mg/dL AST (14-36) U/L Alkaline Phosphatase (38-126) U/L Total Protein (6.3-8.2) g/dL Albumin (3.5-5.0) g/dL Amylase (30-110) U/L Lipase (23-300) U/L Urine Appearance (Clear) Urine Protein (Negative) Urine Ketones (Negative) Urine Blood (Negative) Urine Bilirubin (Negative) Ur Leukocyte Esterase (Negative) Urine RBC (0-5) /hpf Urine WBC (0-5) /hpf Urine Bacteria (None) /hpf Urine Mucus (None) /hpf Microbiology - Last 24 Hours (Table) 10/22/17 11:45 Urine Culture - Preliminary Urine,Voided Assessment and Plan Assessment: 1. Acute kidney injury: Creatinine 7.6 BUN 115 on admission. Creatinine has decreased to 3.30. Patient is receiving IV fluids. Possibly secondary to diarrhea, medications and hypotension. Metformin, Aldactazide, Mobic, lisinopril, and allopurinol have all been discontinued. Followed closely by nephrology. Renal ultrasound negative for renal mass or obstruction 2. Severe Metabolic acidosis: CO2 less than 5 on admission. likely related to patient's diarrhea, renal failure and keto diet. Continue sodium bicarb 3. Hypoglycemia: Possibly related to the keto diet as well as taking the metformin and glipizide. Diabetic medications have been discontinued. Place patient on Accu-Cheks. Blood sugars are showing improvement. Receiving D D5 IV fluids. Sliding scale coverage at this morning 4. Hypotensive likely related to volume depletion and blood pressure medications. Continue with IV fluids Continue IV fluids and levo. 5. UTI: Place patient on Rocephin. Check urine culture 6. Diarrhea : Appears to resolved. check stool for C. diff 7. Hyperkalemia likely related to patient's acute kidney injury and the spironolactone and LISA. Hypokalemia resolved. Potassium 4.8. 8. Hyperphosphatemia: Secondary to acute kidney injury. Trending down as kidney functions improve 9. Thrombocytopenia: Exact etiology unclear. No evidence of bleeding. Possibly related to the acute UTI infection. Continue to monitor. Platelet count improving at 105 10. History of diabetes mellitus type 2 11. History of essential hypertension 12. History of gout due to her acute kidney injury will hold the allopurinol 13. Morbid obesity: BMI 55.7 14. Acute pancreatitis: Lipase 916 and amylase 167. Abdominal pain has resolved. No previous history of alcohol use. Repeat amylase lipase. Check triglyceride level. Check liver ultrasound rule out gallstones GI prophylaxis Protonix and DVT prophylaxis SCDs. I performed an examination of the patient and discussed their management with the physician Mind Reader. I have reviewed the Physician Mind Reader's notes and agree with the documented findings and plan of care
--- NOTE | 2017-10-23 12:00 | US ---
EXAMINATION TYPE: US liver DATE OF EXAM: 10/23/2017 COMPARISON: NONE CLINICAL HISTORY: pancreatitis. EXAM MEASUREMENTS: Liver Length: 21.0 cm Gallbladder Wall: 0.1 cm CBD: 0.2 cm Right Kidney: 11.1 x 4.5 x 5.5 cm Morbidly obese patient. Pancreas: Tail obscured by overlying bowel gas Liver: enlarged Gallbladder: cholelithiasis Evidence for sonographic Tellez's sign: no CBD: wnl Right Kidney: wnl Visualized pancreas is slightly heterogeneous in appearance without worrisome mass or ductal dilatati on. Portion of distal body and tail is obscured by overlying bowel gas on images saved. No adjacent s uspicious focal fluid collection is seen. IVC is seen near hepatic dome. Visualized liver is heteroge neously hyperechoic without intrahepatic ductal dilatation. Evaluation for focal masses is suboptimal due to the heterogeneity. Multiple shadowing mobile gallstones are seen in gallbladder. There is no pericholecystic fluid or abnormal gallbladder wall thickening. Limited images of right kidney show no gross hydronephrosis. IMPRESSION: 1. Visualized portions of pancreas are unremarkable, no ultrasound evidence for complication related to acute pancreatitis. 2. Multiple Gallstones without secondary ultrasound evidence for acute cholecystitis. 3. Heterogeneous hyperechoic appearance of liver is likely on basis of diffuse fatty infiltration in obese patient.
[2017-10-23 12:15] LABS: Glucose,Whole Blood 137 mg/dL (75-99)
--- NOTE | 2017-10-23 14:01 | ECHOF ---
Referral Reason:hypotension MEASUREMENTS -------- HEIGHT: 154.9 cm WEIGHT: 130.6 kg BP: 103/63 IVSd: 1.2 cm (0.6 - 1.1) LVIDd: 3.8 cm (3.9 - 5.3) LVPWd: 1.2 cm (0.6 - 1.1) IVSs: 1.4 cm LVIDs: 1.9 cm LVPWs: 1.9 cm LAESV Index (A-L): 19.67 ml/m Ao Diam: 3.3 cm (2.0 - 3.7) AV Cusp: 1.4 cm (1.5 - 2.6) LA Diam: 2.9 cm (2.7 - 3.8) MV EXCURSION: 15.249 mm (> 18.000) MV EF SLOPE: 97 mm/s (70 - 150) EPSS: 0.6 cm MV E Shad: 0.87 m/s MV DecT: 170 ms MV A Shad: 1.25 m/s MV E/A Ratio: 0.70 AV maxP.74 mmHg AV meanP.29 mmHg RAP: 5.00 mmHg RVSP: 16.55 mmHg FINDINGS -------- Resting tachycardia (HR>100bpm). This was a technically good study. The left ventricular size is normal. There is mild concentric left ventricular hypertrophy. Overa ll left ventricular systolic function is normal with, an EF between 55 - 60 %. The right ventricle is normal in size and function. The left atrium is normal in size. The right atrium is normal in size. Aortic valve is trileaflet and is mildly thickened. There is mild aortic valve sclerosis. Peak/me an gradient across the Aortic Valve is 17.74mmHg / 8.29mmHg. The mitral valve leaflets are mildly thickened. Mild mitral regurgitation is present. Mild tricuspid regurgitation present. The right ventricular systolic pressure, as measured by Doppl er, is 16.55mmHg. The pulmonic valve was not well visualized. The aortic root size is normal. The pericardium is normal. CONCLUSIONS -------- 1. Resting tachycardia (HR>100bpm). 2. This was a technically good study. 3. The left ventricular size is normal. 4. There is mild concentric left ventricular hypertrophy. 5. Overall left ventricular systolic function is normal with, an EF between 55 - 60 %. 6. The right ventricle is normal in size and function. 7. The left atrium is normal in size. 8. The right atrium is normal in size. 9. Aortic valve is trileaflet and is mildly thickened. 10. There is mild aortic valve sclerosis. 11. Peak/mean gradient across the Aortic Valve is 17.74mmHg / 8.29mmHg. 12. The mitral valve leaflets are mildly thickened. 13. Mild mitral regurgitation is present. 14. Mild tricuspid regurgitation present. 15. The right ventricular systolic pressure, as measured by Doppler, is 16.55mmHg. 16. The pulmonic valve was not well visualized. 17. The aortic root size is normal. 18. The pericardium is normal. HV[employer] DESIGN MECHANICAL ENGINEER: Renée Martel RDCS
--- NOTE | 2017-10-23 14:39 | P.PN ---
Subjective Progress Note Date: 10/23/17 A 67-year-old female patient, morbidly obese, BMI 55.7, diabetic along with history of hypertension and hyperlipidemia presented to her primary care physician's office because of generalized weakness, dehydration, diarrhea and drop in urine output. At the same time the patient was having increased nausea and dizziness and headache and feeling sick in general. The patient was immediately sent to the emergency department and the patient was found to have markedly abnormalities in her blood work. First of all, the patient was found to be hypothermic, hypotensive with a systolic in the mid 70s, and electrolytes showing a serum bicarb level of less than 5, potassium level of 6.0, and acute kidney injury with a creatinine of 7.26 with a BN of 115 and the patient's blood sugar was 43. Apparently, the patient was on a ketotic diet that she had been implementing over the past or weeks. Along with this diet the patient was able to lose around 24 pounds. She did not get the advisability dilatation. She'll obtain this diet BY herself and she was cutting her carbs and cancer treating mainly on protein rich foods. Approximately a week ago she started having these symptoms in her condition progressively got worse. In addition she started developing diarrhea and she reports liquid diarrhea around once every 2-3 hours and it got worse over this past few days. She became extremely dehydrated. Note that she is also on LISA inhibitor's for blood pressure control. With all these issues, she presented to the hospital. No chest pain. No angina. No pleurisy. No cough or sputum production. She had drop in urine output. The Bingham catheter was inserted initially urine output was minimal. No history of alcoholism. Substance abuse. She is on metformin for blood sugar control. Hypoglycemia was treated with D50 pushes which brought up her blood sugars nicely. The patient urinalysis showed only trace ketones. There was +2 glucose and a white cells. Chest x-ray reveals a segmental atelectatic changes and left lung base. Underlying pneumonia is felt to be less likely. She is receiving external warming. She received a total of 2 L of IV fluid in the emergency department and currently she is being placed on a bicarb infusion. The external warming has been done and the patient's temperature is, 97. She is awake and alert and she is following commands and answering questions appropriately. No altered mentation. No syncope. No loss in consciousness. No falls. No wounds in lower extremities. No open sores. No other complaints other things mentioned above. She has a remote history of colon cancer with a previous colectomy for chemotherapy and [place] [facility] [place] [facility]. Hemodynamically, the patient is currently receiving IV fluids. She had to be placed on pressors and currently she is on 70 mics of norepinephrine infusion which is being infused in Her right upper extremity. We will able to wean off the pressors and the patient is producing adequate amount of urine output. On today's evaluation of 10/23/2017, the patient is looking well and she has no specific complaints. She has been aggressively resuscitated IV fluids and currently she is on a bicarb drip. Urine output is improved. Ultrasound the kidneys showed no evidence of any hydronephrosis. The patient was taken off levo fed earlier this morning. Her creatinine is improving. No significant electrode imbalance with bicarb level is up to 8. She is awake and alert and conscious and oriented. She is following commands and answering questions appropriately. She is denying having any chest pain cough or sputum production. No nausea or vomiting. No abdominal pain. More importantly there is no evidence of any diarrhea. She has a triple lumen catheter in the right IJ which is being utilized for fluids and pressors and electrolyte management. No other significant events overnight and the patient is quite stable at this point in time. Objective - Vital Signs Vital signs: Vital Signs Temp 98.2 F 10/23/17 12:00 Pulse 107 H 10/23/17 14:15 Resp 20 10/23/17 14:15 BP 115/45 10/23/17 14:15 Pulse Ox 96 10/23/17 14:15 Intake & Output 10/22/17 10/23/17 10/23/17 18:59 06:59 18:59 Intake Total 4242.125 1525.000 785.750 Output Total 500 3425 2050 Balance 3742.125 -1900.000 -1264.250 Weight 129 kg 131 kg Intake: IV 4000 1100 700 Dextrose 5% in Water 1, 1100 700 000 ml @ 100 mls/hr IV . [id number] ONE with Sodium Bicarb (1 Meq/ml) 150 ml Rx#:[id number] Sodium Chloride 0.9% 1, 4000 000 ml @ 999 mls/hr IV . Q1H1M ONE Rx#:[id number] Intake, IV Titration 242.125 425.000 85.750 Amount Dextrose 5% in Water 1, 100 100 000 ml @ 100 mls/hr IV . [id number] ONE with Sodium Bicarb (1 Meq/ml) 150 ml Rx#:[id number] Norepinephrin 4 mg-0.9% 142.125 325.000 85.750 Ns Pmx 4 mg In 250 ml @ Titrate IV .Q0M [facility] Rx#: [id number] Output: Urine 500 3425 2050 Other: Voiding Method Indwelling Catheter Indwelling Catheter Indwelling Catheter - Exam Gen. appearance the patient is morbidly obese, comfortable alert and awake following commands and answering questions appropriately. The patient has no respiratory distress Head exam was generally normal. There was no scleral icterus or corneal arcus. Mucous membranes were moist. Neck is supple and there is significant crowding of the posterior pharynx typical of an underlying obstructive sleep apnea. Right IJ triple-lumen catheter is in place Lungs were clear to auscultation and percussion, and with normal diaphragmatic excursion. No wheezes or rales were noted. Breath sounds are diminished in lung bases bilaterally. Cardiac exam revealed the PMI to be normally situated and sized. The rhythm was regular and no extrasystoles were noted during several minutes of auscultation. The first and second heart sounds were normal and physiologic splitting of the second heart sound was noted. There were no murmurs, rubs, clicks, or gallops. Abdomen the patient is morbidly obese and orders cannot be accurately palpated. There is no direct tenderness, rebound tenderness or guarding at this point. Examination of the extremities revealed easily palpable radial, femoral and pedal pulses. There was no cyanosis, clubbing or edema. Examination of the skin revealed no evidence of significant rashes, suspicious appearing nevi or other concerning lesions. Neurologically the patient is awake and alert and is no focal neurological deficits in the creatinine nerves are intact. - Labs CBC & Chem 7: 10/23/17 04:31 10/23/17 04:31 Labs: Abnormal Lab Results - Last 24 Hours (Table) 10/22/17 10/22/17 10/22/17 Range/Units 15:46 16:04 18:31 Plt Count (150-450) k/uL Potassium 6.1 H (3.5-5.1) mmol/L Chloride 112 H (98-107) mmol/L Carbon Dioxide <5 L* (22-30) mmol/L BUN 112 H* (7-17) mg/dL Creatinine 6.61 H* (0.52-1.04) mg/dL Glucose 116 H (74-99) mg/dL POC Glucose (mg/dL) 126 H 153 H (75-99) mg/dL Calcium 8.2 L (8.4-10.2) mg/dL Phosphorus 9.2 H* (2.5-4.5) mg/dL AST 37 H (14-36) U/L Alkaline Phosphatase 130 H (38-126) U/L Total Protein (6.3-8.2) g/dL Albumin (3.5-5.0) g/dL Triglycerides (<150) mg/dL Amylase 167 H (30-110) U/L Lipase 916 H (23-300) U/L 10/22/17 10/22/17 10/22/17 Range/Units 20:02 22:08 22:08 Plt Count 94 L (150-450) k/uL Potassium (3.5-5.1) mmol/L Chloride 116 H (98-107) mmol/L Carbon Dioxide 6 L* (22-30) mmol/L BUN 100 H* (7-17) mg/dL Creatinine 4.42 H (0.52-1.04) mg/dL Glucose 107 H (74-99) mg/dL POC Glucose (mg/dL) 154 H (75-99) mg/dL Calcium 7.5 L (8.4-10.2) mg/dL Phosphorus 6.5 H (2.5-4.5) mg/dL AST (14-36) U/L Alkaline Phosphatase (38-126) U/L Total Protein 6.2 L (6.3-8.2) g/dL Albumin 3.2 L (3.5-5.0) g/dL Triglycerides (<150) mg/dL Amylase (30-110) U/L Lipase (23-300) U/L 10/23/17 10/23/17 10/23/17 Range/Units 04:28 04:31 04:31 Plt Count 105 L (150-450) k/uL Potassium (3.5-5.1) mmol/L Chloride 118 H (98-107) mmol/L Carbon Dioxide 8 L* (22-30) mmol/L BUN 93 H* (7-17) mg/dL Creatinine 3.30 H (0.52-1.04) mg/dL Glucose 127 H (74-99) mg/dL POC Glucose (mg/dL) 113 H (75-99) mg/dL Calcium 8.1 L (8.4-10.2) mg/dL Phosphorus 5.6 H (2.5-4.5) mg/dL AST (14-36) U/L Alkaline Phosphatase (38-126) U/L Total Protein (6.3-8.2) g/dL Albumin (3.5-5.0) g/dL Triglycerides (<150) mg/dL Amylase (30-110) U/L Lipase (23-300) U/L 10/23/17 10/23/17 10/23/17 Range/Units 04:31 04:31 08:06 Plt Count (150-450) k/uL Potassium (3.5-5.1) mmol/L Chloride (98-107) mmol/L Carbon Dioxide (22-30) mmol/L BUN (7-17) mg/dL Creatinine (0.52-1.04) mg/dL Glucose (74-99) mg/dL POC Glucose (mg/dL) 177 H (75-99) mg/dL Calcium (8.4-10.2) mg/dL Phosphorus (2.5-4.5) mg/dL AST (14-36) U/L Alkaline Phosphatase (38-126) U/L Total Protein (6.3-8.2) g/dL Albumin (3.5-5.0) g/dL Triglycerides 165 H (<150) mg/dL Amylase 116 H (30-110) U/L Lipase 725 H (23-300) U/L 10/23/17 Range/Units 12:10 Plt Count (150-450) k/uL Potassium (3.5-5.1) mmol/L Chloride (98-107) mmol/L Carbon Dioxide (22-30) mmol/L BUN (7-17) mg/dL Creatinine (0.52-1.04) mg/dL Glucose (74-99) mg/dL POC Glucose (mg/dL) 137 H (75-99) mg/dL Calcium (8.4-10.2) mg/dL Phosphorus (2.5-4.5) mg/dL AST (14-36) U/L Alkaline Phosphatase (38-126) U/L Total Protein (6.3-8.2) g/dL Albumin (3.5-5.0) g/dL Triglycerides (<150) mg/dL Amylase (30-110) U/L Lipase (23-300) U/L Microbiology - Last 24 Hours (Table) 10/22/17 11:45 Urine Culture - Preliminary Urine,Voided Assessment and Plan Plan: Assessment 1 acute kidney injury, multifactorial. The patient was excessively dehydrated probably related to diarrhea. In addition the patient was taken LISA inhibitor and occasional nonsteroidal anti-inflammatory medication. Currently she is an acute kidney injury at she is nonoliguric and the patient's urine output is improving with fluid resuscitation and pressors On 10/23/2018 the patient has been aggressively settings IV fluids. The patient remains on a bicarb drip. Renal function continues to improve. Creatinine is down to 3.3. Serum bicarb level is up to 8. Potassium level is normalized. Magnesium level is up to 1.7. 2 acute hypotension, most likely hypovolemic in nature and the patient has recovered with IV fluids and the patient is currently off pressors. 3 acute hyperkalemia without any acute EKG changes secondary to above, treated and the potassium level is normalized down to 4.8. 4 acute diarrhea with liquidy bowel movement. No history of any antibiotic intake. Avoid and there is no further episodes of diarrhea 5 severe with doubling acidosis with a component of anion and anion gap metabolic acidosis, improving and the bicarb level is up to 8 6 morbid obesity with a BMI 55.7 7 ketotic diet for weight loss 8 hypoglycemia probably related to metformin effect in the setting of renal failure, treated 9 hypertension, per history 10 diabetes mellitus type 2, per history 11 thrombocytopenia 12 atelectatic changes and left lung base, pneumonia doubtful 13 hypothermia, receiving external warming with subsequent improvement in the body temperature 14 colon cancer with a previous colectomy followed by systemic chemotherapy and the patient is in remission Plan Continue fluid resuscitation. The patient will be receiving D5 bicarb infusion rate of 150 mL an hour. The patient's is improving. The patient is currently off pressors. We'll monitored hemodynamics. Replace electrolytes. Continue empiric antibiotic coverage with IV Rocephin and if the cultures come back negative the Rocephin will be discontinued in a.m. Patient is doing extremely well. No other significant events overnight. We'll continue to follow. She' ll be kept in ICU for another 24 hours.
[2017-10-23 16:22] LABS: Glucose,Whole Blood 151 mg/dL (75-99)
[2017-10-23 16:39] LABS: Calcium 8.3 mg/dL (8.4-10.2); Potassium 4.4 mmol/L (3.5-5.1)
[2017-10-23 20:09] LABS: Glucose,Whole Blood 152 mg/dL (75-99)
[2017-10-23 23:26] LABS: Glucose,Whole Blood 176 mg/dL (75-99)
[2017-10-24] MEDS: DEXTROSE 5% IN WATER 1,000 ML with SODIUM BICARB (1 MEQ/ML) 150 ML IV SCH (03:18)
[2017-10-24 04:13] LABS: Glucose,Whole Blood 152 mg/dL (75-99)
[2017-10-24] MEDS: INSULIN ASPART 100 UNIT/ML 1 ML 10 ML VIAL SQ SCH ×6 (04:14→23:53)
[2017-10-24 05:18] LABS: Basophils % (A) 0 %; Eosinophils # (A) 0.1 k/uL (0-0.7); Eosinophils % (A) 4 %; HCT 32.9 % (34.0-46.0); HGB 10.8 gm/dL (11.4-16.0); Lymphocytes # (A) 0.9 k/uL (1.0-4.8); Lymphocytes % (A) 27 %; MCH 29.7 pg (25.0-35.0); MCHC 32.7 g/dL (31.0-37.0); MCV 90.9 fL (80.0-100.0); Mean Platelet Volume 7.5; Monocytes # (A) 0.2 k/uL (0-1.0); Monocytes % (A) 7 %; Neutrophils # (A) 1.9 k/uL (1.3-7.7); Neutrophils % (A) 60 %; RBC 3.62 m/uL (3.80-5.40); RDW 15.7 % (11.5-15.5); WBC 3.2 k/uL (3.8-10.6)
[2017-10-24 05:28] LABS: Calcium 8.4 mg/dL (8.4-10.2); Magnesium 1.4 mg/dL (1.6-2.3); Phosphorus 2.8 mg/dL (2.5-4.5); Potassium 3.6 mmol/L (3.5-5.1)
[2017-10-24 05:46] LABS: Platelet Count 91 k/uL (150-450)
--- NOTE | 2017-10-24 07:23 | XR ---
EXAMINATION TYPE: XR chest 1V DATE OF EXAM: 10/24/2017 COMPARISON: 10/24/2019 HISTORY: 67 year-old female shortness of breath TECHNIQUE: Single frontal view of the chest is obtained. FINDINGS: Heart remains mildly enlarged. Mild diffuse interstitial/vascular prominence is unchanged. Right IJ C VC tip in the upper right atrium. Some strandy bibasilar areas of atelectasis. No significant pleural effusion. IMPRESSION: Cardiomegaly and relatively stable vascular prominence, possible mild pulmonary vascular congestion. No chi pulmonary edema.
[2017-10-24] MEDS ORDERED: Magnesium Replacement Protocol 1 EACH MISC MISCELLANE PRN (08:09)
[2017-10-24] MEDS ORDERED: Potassium Replacement Protocol 1 EACH MISC MISCELLANE PRN (08:09)
[2017-10-24] MEDS: MAGNESIUM SULFATE-D5W PMX 1 GM in DEXTROSE/WATER 1 100ML.BAG IVPB SCH ×3 (08:20→10:45)
[2017-10-24] MEDS: ASPIRIN 325 MG TAB PO SCH (08:57)
[2017-10-24] MEDS: HEPARIN SODIUM,PORCINE 5,000 UNIT/ML 1 ML VIAL SQ SCH ×3 (08:57→23:48)
[2017-10-24] MEDS: PANTOPRAZOLE 40 MG TABLET PO SCH (08:57)
[2017-10-24] MEDS: cefTRIAXone IN SWFI 1,000 MG/10 ML SYRINGE IVP SCH (08:59)
[2017-10-24 09:00] LABS: Glucose,Whole Blood 174 mg/dL (75-99)
[2017-10-24] MEDS ORDERED: POTASSIUM CHLORIDE ER 20 MEQ TAB.ER PO ONE (09:00)
[2017-10-24] MEDS ORDERED: SODIUM CHLORIDE 0.9% 1,000 ML IV SCH (09:45)
--- NOTE | 2017-10-24 10:14 | P.PN ---
Subjective Patient is seen in follow-up for acute kidney injury and metabolic acidosis. Creatinine is under 1.3 and bicarb level is up to 22. She is maintained on bicarb drip. She is nonoliguric. No vomiting or diarrhea. Oral intake is good. Denies chest pain or shortness of breath. Vital signs are stable. General: The patient appeared well nourished and normally developed. HEENT: Head exam is unremarkable. Neck is without jugular venous distension. LUNGS: Lungs are clear to auscultation and percussion. Breath sounds decreased. HEART: Rate and Rhythm are regular. First and second heart sounds normal. No murmurs, rubs or gallops. ABDOMEN: Abdominal exam reveals normal bowel sounds. Non-tender and non- distended. No evidence of peritonitis. EXTREMITITES: No clubbing, cyanosis, or edema. Objective - Vital Signs Vital signs: Vital Signs Temp 98.2 F 10/24/17 08:00 Pulse 110 H 10/24/17 09:00 Resp 20 10/24/17 09:00 BP 97/60 10/24/17 09:00 Pulse Ox 95 10/24/17 09:00 Intake & Output 10/23/17 10/24/17 10/24/17 18:59 06:59 18:59 Intake Total 6692.843 0531 400 Output Total 2925 1500 225 Balance -1279.250 -300 175 Weight 131 kg 132.3 kg Intake: IV 1200 1200 400 Dextrose 5% in Water 1, 1200 1200 100 000 ml @ 100 mls/hr IV . [id number] ONE with Sodium Bicarb (1 Meq/ml) 150 ml Rx#:[id number] Dextrose 5% in Water 1, 200 000 ml @ 100 mls/hr IV . [id number] [facility] with Sodium Bicarb (1 Meq/ml) 150 ml Rx#:[id number] Magnesium Sulfate-D5w Pmx 100 1 gm In Dextrose/Water 1 100ml.bag @ 100 mls/hr IVPB Q1H [facility] Rx#: [id number] Intake, IV Titration 85.750 Amount Norepinephrin 4 mg-0.9% 85.750 Ns Pmx 4 mg In 250 ml @ Titrate IV .Q0M [facility] Rx#: [id number] Oral 360 Output: Urine 2925 1500 225 Other: Voiding Method Indwelling Catheter Indwelling Catheter Indwelling Catheter # Bowel Movements 1 1 - Labs CBC & Chem 7: 10/24/17 05:05 10/24/17 05:05 Labs: Abnormal Lab Results - Last 24 Hours (Table) 10/23/17 10/23/17 10/23/17 Range/Units 04:31 12:10 16:20 WBC (3.8-10.6) k/uL RBC (3.80-5.40) m/uL Hgb (11.4-16.0) gm/dL Hct (34.0-46.0) % RDW (11.5-15.5) % Plt Count (150-450) k/uL Lymphocytes # (1.0-4.8) k/uL Chloride (98-107) mmol/L Carbon Dioxide (22-30) mmol/L BUN (7-17) mg/dL Creatinine (0.52-1.04) mg/dL Glucose (74-99) mg/dL POC Glucose (mg/dL) 137 H 151 H (75-99) mg/dL Calcium (8.4-10.2) mg/dL Magnesium (1.6-2.3) mg/dL Triglycerides 165 H (<150) mg/dL 10/23/17 10/23/17 10/23/17 Range/Units 16:25 20:08 23:24 WBC (3.8-10.6) k/uL RBC (3.80-5.40) m/uL Hgb (11.4-16.0) gm/dL Hct (34.0-46.0) % RDW (11.5-15.5) % Plt Count (150-450) k/uL Lymphocytes # (1.0-4.8) k/uL Chloride 113 H (98-107) mmol/L Carbon Dioxide 15 L (22-30) mmol/L BUN 73 H (7-17) mg/dL Creatinine 1.97 H (0.52-1.04) mg/dL Glucose 148 H (74-99) mg/dL POC Glucose (mg/dL) 152 H 176 H (75-99) mg/dL Calcium 8.3 L (8.4-10.2) mg/dL Magnesium (1.6-2.3) mg/dL Triglycerides (<150) mg/dL 10/24/17 10/24/1710/24/18 Range/Units 04:11 05:05 05:05 WBC 3.2 L (3.8-10.6) k/uL RBC 3.62 L (3.80-5.40) m/uL Hgb 10.8 L (11.4-16.0) gm/dL Hct 32.9 L (34.0-46.0) % RDW 15.7 H (11.5-15.5) % Plt Count 91 L (150-450) k/uL Lymphocytes # 0.9 L (1.0-4.8) k/uL Chloride 110 H (98-107) mmol/L Carbon Dioxide (22-30) mmol/L BUN 60 H (7-17) mg/dL Creatinine 1.30 H (0.52-1.04) mg/dL Glucose 148 H (74-99) mg/dL POC Glucose (mg/dL) 152 H (75-99) mg/dL Calcium (8.4-10.2) mg/dL Magnesium 1.4 L (1.6-2.3) mg/dL Triglycerides (<150) mg/dL 10/24/17 Range/Units 08:58 WBC (3.8-10.6) k/uL RBC (3.80-5.40) m/uL Hgb (11.4-16.0) gm/dL Hct (34.0-46.0) % RDW (11.5-15.5) % Plt Count (150-450) k/uL Lymphocytes # (1.0-4.8) k/uL Chloride (98-107) mmol/L Carbon Dioxide (22-30) mmol/L BUN (7-17) mg/dL Creatinine (0.52-1.04) mg/dL Glucose (74-99) mg/dL POC Glucose (mg/dL) 174 H (75-99) mg/dL Calcium (8.4-10.2) mg/dL Magnesium (1.6-2.3) mg/dL Triglycerides (<150) mg/dL Microbiology - Last 24 Hours (Table) 10/22/17 11:45 Urine Culture - Final Urine,Voided Assessment and Plan Plan: Assessment: 1. Nonoliguric acute kidney injury mostly prerenal due to hypotension/NSAIDS, improved with IV hydration. Creatinine was greater than 7 on admission and is down to 1.3 today. 2. Severe metabolic acidosis secondary to diarrhea and acute kidney injury. Improved. 3. Hyperphosphatemia secondary to acute kidney injury. Resolved with improving renal function. 4. Hypokalemia secondary to IV bicarb and hypomagnesemia. 5. Hypomagnesemia from poor oral intake. Plan: Discontinue sodium bicarbonate drip. Start normal saline at 75 mL an hour for maintenance fluids. Encourage oral intake. Replace potassium. 40 mEq today. Magnesium also being replaced. Repeat electrolytes in the morning.
[2017-10-24 11:54] LABS: Glucose,Whole Blood 170 mg/dL (75-99)
--- NOTE | 2017-10-24 12:31 | P.PN ---
Subjective Progress Note Date: 10/24/17 A 67-year-old female patient, morbidly obese, BMI 55.7, diabetic along with history of hypertension and hyperlipidemia presented to her primary care physician's office because of generalized weakness, dehydration, diarrhea and drop in urine output. At the same time the patient was having increased nausea and dizziness and headache and feeling sick in general. The patient was immediately sent to the emergency department and the patient was found to have markedly abnormalities in her blood work. First of all, the patient was found to be hypothermic, hypotensive with a systolic in the mid 70s, and electrolytes showing a serum bicarb level of less than 5, potassium level of 6.0, and acute kidney injury with a creatinine of 7.26 with a BN of 115 and the patient's blood sugar was 43. Apparently, the patient was on a ketotic diet that she had been implementing over the past or weeks. Along with this diet the patient was able to lose around 24 pounds. She did not get the advisability dilatation. She'll obtain this diet BY herself and she was cutting her carbs and cancer treating mainly on protein rich foods. Approximately a week ago she started having these symptoms in her condition progressively got worse. In addition she started developing diarrhea and she reports liquid diarrhea around once every 2-3 hours and it got worse over this past few days. She became extremely dehydrated. Note that she is also on LISA inhibitor's for blood pressure control. With all these issues, she presented to the hospital. No chest pain. No angina. No pleurisy. No cough or sputum production. She had drop in urine output. The Bingham catheter was inserted initially urine output was minimal. No history of alcoholism. Substance abuse. She is on metformin for blood sugar control. Hypoglycemia was treated with D50 pushes which brought up her blood sugars nicely. The patient urinalysis showed only trace ketones. There was +2 glucose and a white cells. Chest x-ray reveals a segmental atelectatic changes and left lung base. Underlying pneumonia is felt to be less likely. She is receiving external warming. She received a total of 2 L of IV fluid in the emergency department and currently she is being placed on a bicarb infusion. The external warming has been done and the patient's temperature is, 97. She is awake and alert and she is following commands and answering questions appropriately. No altered mentation. No syncope. No loss in consciousness. No falls. No wounds in lower extremities. No open sores. No other complaints other things mentioned above. She has a remote history of colon cancer with a previous colectomy for chemotherapy and [place] [facility]. Hemodynamically, the patient is currently receiving IV fluids. She had to be placed on pressors and currently she is on 70 mics of norepinephrine infusion which is being infused in Her right upper extremity. We will able to wean off the pressors and the patient is producing adequate amount of urine output. On today's evaluation of 10/23/2017, the patient is looking well and she has no specific complaints. She has been aggressively resuscitated IV fluids and currently she is on a bicarb drip. Urine output is improved. Ultrasound the kidneys showed no evidence of any hydronephrosis. The patient was taken off levo fed earlier this morning. Her creatinine is improving. No significant electrode imbalance with bicarb level is up to 8. She is awake and alert and conscious and oriented. She is following commands and answering questions appropriately. She is denying having any chest pain cough or sputum production. No nausea or vomiting. No abdominal pain. More importantly there is no evidence of any diarrhea. She has a triple lumen catheter in the right IJ which is being utilized for fluids and pressors and electrolyte management. No other significant events overnight and the patient is quite stable at this point in time. On 10/24/2017 the patient is being seen in follow-up. The patient is improved significantly. Renal function is normalizing and creatinine is down to 1.2. Bicarb level is also improved and it's up to 22. The patient's potassium level is at 3.6. Magnesium level is at 1.4. She is having occasional PVCs. She is on no pressors. Echo cardiac rhythm showed a preserved LV function. Afebrile hemodynamically stable at this point. No altered mentation. No other complaint otherwise for now. No nausea or vomiting. She is gradually advancing her diet as tolerated. Hemoglobin stable at 10.8. Objective - Vital Signs Vital signs: Vital Signs Temp 97.6 F 10/24/17 12:00 Pulse 96 10/24/17 12:00 Resp 18 10/24/17 12:00 BP 114/66 10/24/17 12:00 Pulse Ox 93 L 10/24/17 12:00 Intake & Output 10/23/17 10/24/17 10/24/17 18:59 06:59 18:59 Intake Total 3630.430 8100 825 Output Total 2925 1500 550 Balance -1279.250 -300 275 Weight 131 kg 132.3 kg Intake: IV 1200 1200 825 Dextrose 5% in Water 1, 1200 1200 100 000 ml @ 100 mls/hr IV . [id number] ONE with Sodium Bicarb (1 Meq/ml) 150 ml Rx#:[id number] Dextrose 5% in Water 1, 200 000 ml @ 100 mls/hr IV . [id number] [facility] with Sodium Bicarb (1 Meq/ml) 150 ml Rx#:[id number] Magnesium Sulfate-D5w Pmx 300 1 gm In Dextrose/Water 1 100ml.bag @ 100 mls/hr IVPB Q1H [facility] Rx#: [id number] Sodium Chloride 0.9% 1, 225 000 ml @ 75 mls/hr IV . [id number] [facility] Rx#:[id number] Intake, IV Titration 85.750 Amount Norepinephrin 4 mg-0.9% 85.750 Ns Pmx 4 mg In 250 ml @ Titrate IV .Q0M [facility] Rx#: [id number] Oral 360 Output: Urine 2925 1500 550 Other: Voiding Method Indwelling Catheter Indwelling Catheter Indwelling Catheter # Bowel Movements 1 1 - Exam Gen. appearance the patient is morbidly obese, comfortable alert and awake following commands and answering questions appropriately. The patient has no respiratory distress Head exam was generally normal. There was no scleral icterus or corneal arcus. Mucous membranes were moist. Neck is supple and there is significant crowding of the posterior pharynx typical of an underlying obstructive sleep apnea. Right IJ triple-lumen catheter is in place Lungs were clear to auscultation and percussion, and with normal diaphragmatic excursion. No wheezes or rales were noted. Breath sounds are diminished in lung bases bilaterally. Cardiac exam revealed the PMI to be normally situated and sized. The rhythm was regular and no extrasystoles were noted during several minutes of auscultation. The first and second heart sounds were normal and physiologic splitting of the second heart sound was noted. There were no murmurs, rubs, clicks, or gallops. Abdomen the patient is morbidly obese and orders cannot be accurately palpated. There is no direct tenderness, rebound tenderness or guarding at this point. Examination of the extremities revealed easily palpable radial, femoral and pedal pulses. There was no cyanosis, clubbing or edema. Examination of the skin revealed no evidence of significant rashes, suspicious appearing nevi or other concerning lesions. Neurologically the patient is awake and alert and is no focal neurological deficits in the creatinine nerves are intact. - Labs CBC & Chem 7: 10/24/17 05:05 10/24/17 05:05 Labs: Abnormal Lab Results - Last 24 Hours (Table) 10/23/17 10/23/17 10/23/17 Range/Units 16:20 16:25 20:08 WBC (3.8-10.6) k/uL RBC (3.80-5.40) m/uL Hgb (11.4-16.0) gm/dL Hct (34.0-46.0) % RDW (11.5-15.5) % Plt Count (150-450) k/uL Lymphocytes # (1.0-4.8) k/uL Chloride 113 H (98-107) mmol/L Carbon Dioxide 15 L (22-30) mmol/L BUN 73 H (7-17) mg/dL Creatinine 1.97 H (0.52-1.04) mg/dL Glucose 148 H (74-99) mg/dL POC Glucose (mg/dL) 151 H 152 H (75-99) mg/dL Calcium 8.3 L (8.4-10.2) mg/dL Magnesium (1.6-2.3) mg/dL 10/23/17 10/24/17 10/24/17 Range/Units 23:24 04:11 05:05 WBC 3.2 L (3.8-10.6) k/uL RBC 3.62 L (3.80-5.40) m/uL Hgb 10.8 L (11.4-16.0) gm/dL Hct 32.9 L (34.0-46.0) % RDW 15.7 H (11.5-15.5) % Plt Count 91 L (150-450) k/uL Lymphocytes # 0.9 L (1.0-4.8) k/uL Chloride (98-107) mmol/L Carbon Dioxide (22-30) mmol/L BUN (7-17) mg/dL Creatinine (0.52-1.04) mg/dL Glucose (74-99) mg/dL POC Glucose (mg/dL) 176 H 152 H (75-99) mg/dL Calcium (8.4-10.2) mg/dL Magnesium (1.6-2.3) mg/dL 10/24/17 10/24/17 10/24/17 Range/Units 05:05 08:58 11:52 WBC (3.8-10.6) k/uL RBC (3.80-5.40) m/uL Hgb (11.4-16.0) gm/dL Hct (34.0-46.0) % RDW (11.5-15.5) % Plt Count (150-450) k/uL Lymphocytes # (1.0-4.8) k/uL Chloride 110 H (98-107) mmol/L Carbon Dioxide (22-30) mmol/L BUN 60 H (7-17) mg/dL Creatinine 1.30 H (0.52-1.04) mg/dL Glucose 148 H (74-99) mg/dL POC Glucose (mg/dL) 174 H 170 H (75-99) mg/dL Calcium (8.4-10.2) mg/dL Magnesium 1.4 L (1.6-2.3) mg/dL Microbiology - Last 24 Hours (Table) 10/22/17 11:45 Urine Culture - Final Urine,Voided Assessment and Plan Plan: Assessment 1 acute kidney injury, multifactorial. The patient was excessively dehydrated probably related to diarrhea. In addition the patient was taken LISA inhibitor and occasional nonsteroidal anti-inflammatory medication. Currently she is an acute kidney injury at she is nonoliguric and the patient's urine output is improving with fluid resuscitation and pressors On 10/23/2018 the patient has been aggressively settings IV fluids. The patient remains on a bicarb drip. Renal function continues to improve. Creatinine is down to 3.3. Serum bicarb level is up to 8. Potassium level is normalized. Magnesium level is up to 1.7. On 10/24/2017, the patient is improved significantly and patient has no was resuscitated and hemodynamically stable on function is improving with her creatinine is down to 1.3. Electrodes are also improving and normalizing. The patient's potassium is at 3.6 and this is to be further place and the magnesium level is at 1.4. Renal function is improving and the creatinine is down to 1.3. Currently on no pressors. 2 acute hypotension, most likely hypovolemic, recovered 3 acute hyperkalemia without any acute EKG changes, recovered 4 acute diarrhea with liquidy bowel movement, recovered 5 severe double it acidosis, recovered 6 morbid obesity with a BMI 55.7 7 ketotic diet for weight loss 8 hypoglycemia probably related to metformin effect in the setting of renal failure, treated 9 hypertension, per history 10 diabetes mellitus type 2, per history 11 thrombocytopenia, stable platelet count 12 atelectatic changes and left lung base, pneumonia doubtful 13 hypothermia, receiving external warming with subsequent improvement in the body temperature, recovered 14 colon cancer with a previous colectomy followed by systemic chemotherapy and the patient is in remission 15 frequent PVCs and the patient is demonstrating a normal echocardiogram. Could be related to electrodes imbalance. Plan Switch this patient to normal state rate of 75 mL an hour. Replace potassium. Replace magnesium. Monitor the cardiac rhythm and the PVCs. May consider the addition of a beta nay at a later stage if this becomes an ongoing problem specially after the patient of the electrolytes. We'll continue to follow.
--- NOTE | 2017-10-24 14:25 | P.PN ---
Subjective Progress Note Date: 10/24/17 Principal diagnosis: Acute kidney injury Patient is doing well today. She was sitting up in the chair when I saw her. She does not have any complaints. She did not get enough sleep last night and is feeling tired and sleepy. Kidney function is back to normal. Objective - Vital Signs Vital signs: Vital Signs Temp 97.6 F 10/24/17 12:00 Pulse 97 10/24/17 13:00 Resp 19 10/24/17 13:00 BP 112/51 10/24/17 13:00 Pulse Ox 95 10/24/17 13:00 Intake & Output 10/23/17 10/24/17 10/24/17 18:59 06:59 18:59 Intake Total 2220.599 1646 900 Output Total 2925 1500 625 Balance -1279.250 -300 275 Weight 131 kg 132.3 kg Intake: IV 1200 1200 900 Dextrose 5% in Water 1, 1200 1200 100 000 ml @ 100 mls/hr IV . [id number] ONE with Sodium Bicarb (1 Meq/ml) 150 ml Rx#:[id number] Dextrose 5% in Water 1, 200 000 ml @ 100 mls/hr IV . [id number] JUANA with Sodium Bicarb (1 Meq/ml) 150 ml Rx#:[id number] Magnesium Sulfate-D5w Pmx 300 1 gm In Dextrose/Water 1 100ml.bag @ 100 mls/hr IVPB Q1H [facility] Rx#: [id number] Sodium Chloride 0.9% 1, 300 000 ml @ 75 mls/hr IV . [id number] [facility] Rx#:[id number] Intake, IV Titration 85.750 Amount Norepinephrin 4 mg-0.9% 85.750 Ns Pmx 4 mg In 250 ml @ Titrate IV .Q0M [facility] Rx#: [id number] Oral 360 Output: Urine 2925 1500 625 Other: Voiding Method Indwelling Catheter Indwelling Catheter Indwelling Catheter # Bowel Movements 1 1 - Exam General: The patient is awake and alert, in no distress Eye: there is normal conjunctiva bilaterally. Neck: The neck is supple, there is no JVD. Cardiovascular: Normal S1-S2, no S3-S4, no murmurs. Respiratory: Lungs clear to auscultation bilaterally Gastrointestinal: Abdomen is soft, nontender Musculoskeletal: There is no pedal edema. Neurological:. Speech is normal. Skin: Skin is warm and dry - Labs CBC & Chem 7: 10/24/17 05:05 10/24/17 05:05 Labs: Abnormal Lab Results - Last 24 Hours (Table) 10/23/17 10/23/17 10/23/17 Range/Units 16:20 16:25 20:08 WBC (3.8-10.6) k/uL RBC (3.80-5.40) m/uL Hgb (11.4-16.0) gm/dL Hct (34.0-46.0) % RDW (11.5-15.5) % Plt Count (150-450) k/uL Lymphocytes # (1.0-4.8) k/uL Chloride 113 H (98-107) mmol/L Carbon Dioxide 15 L (22-30) mmol/L BUN 73 H (7-17) mg/dL Creatinine 1.97 H (0.52-1.04) mg/dL Glucose 148 H (74-99) mg/dL POC Glucose (mg/dL) 151 H 152 H (75-99) mg/dL Calcium 8.3 L (8.4-10.2) mg/dL Magnesium (1.6-2.3) mg/dL 10/23/17 10/24/17 10/24/17 Range/Units 23:24 04:11 05:05 WBC 3.2 L (3.8-10.6) k/uL RBC 3.62 L (3.80-5.40) m/uL Hgb 10.8 L (11.4-16.0) gm/dL Hct 32.9 L (34.0-46.0) % RDW 15.7 H (11.5-15.5) % Plt Count 91 L (150-450) k/uL Lymphocytes # 0.9 L (1.0-4.8) k/uL Chloride (98-107) mmol/L Carbon Dioxide (22-30) mmol/L BUN (7-17) mg/dL Creatinine (0.52-1.04) mg/dL Glucose (74-99) mg/dL POC Glucose (mg/dL) 176 H 152 H (75-99) mg/dL Calcium (8.4-10.2) mg/dL Magnesium (1.6-2.3) mg/dL 10/24/17 10/24/17 10/24/17 Range/Units 05:05 08:58 11:52 WBC (3.8-10.6) k/uL RBC (3.80-5.40) m/uL Hgb (11.4-16.0) gm/dL Hct (34.0-46.0) % RDW (11.5-15.5) % Plt Count (150-450) k/uL Lymphocytes # (1.0-4.8) k/uL Chloride 110 H (98-107) mmol/L Carbon Dioxide (22-30) mmol/L BUN 60 H (7-17) mg/dL Creatinine 1.30 H (0.52-1.04) mg/dL Glucose 148 H (74-99) mg/dL POC Glucose (mg/dL) 174 H 170 H (75-99) mg/dL Calcium (8.4-10.2) mg/dL Magnesium 1.4 L (1.6-2.3) mg/dL Microbiology - Last 24 Hours (Table) 10/22/17 11:45 Urine Culture - Final Urine,Voided Assessment and Plan Assessment: 1. Acute kidney injury: Creatinine 7.6 BUN 115 on admission. Improved significantly with IV fluid hydration almost back to normal range.. Possibly secondary to diarrhea, medications and hypotension. Metformin, Aldactazide, Mobic, lisinopril, and allopurinol have all been discontinued. Followed closely by nephrology. Renal ultrasound negative for renal mass or obstruction 2. Severe Metabolic acidosis: Secondary to #1 and diarrhea on presentation 3. Hypoglycemia: Resolved. 4. Hypotensive likely related to volume depletion and blood pressure medications. Now blood pressure within acceptable range 5. UTI: Place patient on Rocephin. Urine culture negative 6. Diarrhea : Appears to resolved. C. diff screen was negative 7. Hyperkalemia likely related to patient's acute kidney injury. Now back to normal range 8. Hyperphosphatemia: Secondary to acute kidney injury. Trending down as kidney functions improve 9. Thrombocytopenia: Exact etiology unclear. No evidence of bleeding. In a stable range 10. History of diabetes mellitus type 2 11. History of essential hypertension 12. History of gout due to her acute kidney injury will hold the allopurinol 13. Morbid obesity: BMI 55.7 - Discontinue Bingham catheter - Discontinue central line and maintain peripheral IV - Discontinue IV fluids and encourage oral hydration - Repeat lab work in the morning - Transferred outside the ICU to [facility] as directed by viner operator
[2017-10-24 14:27] LABS: Magnesium 2.1 mg/dL (1.6-2.3); Potassium 4.2 mmol/L (3.5-5.1)
[2017-10-24 16:16] LABS: Glucose,Whole Blood 120 mg/dL (75-99)
[2017-10-24 19:57] LABS: Glucose,Whole Blood 152 mg/dL (75-99)
[2017-10-24 23:51] LABS: Glucose,Whole Blood 173 mg/dL (75-99)
[2017-10-25 03:09] LABS: Glucose,Whole Blood 107 mg/dL (75-99)
[2017-10-25 05:39] LABS: Basophils % (A) 0 %; Eosinophils # (A) 0.1 k/uL (0-0.7); Eosinophils % (A) 4 %; HCT 33.1 % (34.0-46.0); HGB 10.7 gm/dL (11.4-16.0); Lymphocytes # (A) 0.8 k/uL (1.0-4.8); Lymphocytes % (A) 23 %; MCH 29.4 pg (25.0-35.0); MCHC 32.4 g/dL (31.0-37.0); Mean Platelet Volume 7.7; Monocytes # (A) 0.3 k/uL (0-1.0); Monocytes % (A) 8 %; Neutrophils # (A) 2.3 k/uL (1.3-7.7); Neutrophils % (A) 64 %; RBC 3.63 m/uL (3.80-5.40); WBC 3.6 k/uL (3.8-10.6)
[2017-10-25 05:42] LABS: Platelet Count 87 k/uL (150-450)
[2017-10-25 05:48] LABS: Calcium 8.7 mg/dL (8.4-10.2); Magnesium 1.7 mg/dL (1.6-2.3); Phosphorus 2.8 mg/dL (2.5-4.5); Potassium 4.1 mmol/L (3.5-5.1)
[2017-10-25] MEDS: INSULIN ASPART 100 UNIT/ML 1 ML 10 ML VIAL SQ SCH ×5 (06:55→20:45)
[2017-10-25] MEDS: MAGNESIUM SULFATE-D5W PMX 1 GM in DEXTROSE/WATER 1 100ML.BAG IVPB SCH ×2 (06:56→07:51)
--- NOTE | 2017-10-25 07:31 | XR ---
EXAMINATION TYPE: XR chest 1V portable DATE OF EXAM: 10/25/2017 Comparison: 10/24/2017 Clinical History: 67-year-old female cardiomegaly, ICU follow-up Findings: Heart remains mildly enlarged. Mild elongation thoracic aorta. Bilateral hilar prominence unchanged. Right IJ sheath removed in the interval. Strandy bibasilar densities, likely atelectasis. Pulmonary v asculature appears improved. Impression: Cardiomegaly with some strandy bibasilar areas of atelectasis. Right IJ CVC removed.
[2017-10-25 07:47] LABS: Glucose,Whole Blood 135 mg/dL (75-99)
[2017-10-25] MEDS: PANTOPRAZOLE 40 MG TABLET PO SCH (07:51)
[2017-10-25] MEDS: ASPIRIN 325 MG TAB PO SCH (07:51)
[2017-10-25] MEDS: HEPARIN SODIUM,PORCINE 5,000 UNIT/ML 1 ML VIAL SQ SCH ×3 (07:51→23:27)
[2017-10-25] MEDS ORDERED: METOPROLOL TARTRATE 25 MG TAB PO SCH (09:30)
--- NOTE | 2017-10-25 10:06 | P.PN ---
Subjective Progress Note Date: 10/25/17 Principal diagnosis: Acute kidney injury Patient is doing fairly well today. She was up in the chair when I saw her. She was noted to have frequent PVCs on telemetry monitoring with occasional bigeminy needs. Patient herself denies any palpitation or heart pounding. The pressure within acceptable range. Electrolytes including potassium and magnesium are normal. Objective - Vital Signs Vital signs: Vital Signs Temp 97.6 F 10/25/17 08:00 Pulse 94 10/25/17 09:00 Resp 20 10/25/17 09:00 BP 118/68 10/25/17 09:00 Pulse Ox 94 L 10/25/17 09:00 Intake & Output 10/24/17 10/25/17 10/25/17 18:59 06:59 18:59 Intake Total 1370 740 300 Output Total 1175 775 250 Balance 195 -35 50 Weight 131.7 kg Intake: IV 1050 100 Dextrose 5% in Water 1, 100 000 ml @ 100 mls/hr IV . [id number] ONE with Sodium Bicarb (1 Meq/ml) 150 ml Rx#:[id number] Dextrose 5% in Water 1, 200 000 ml @ 100 mls/hr IV . [id number] [facility] with Sodium Bicarb (1 Meq/ml) 150 ml Rx#:[id number] Magnesium Sulfate-D5w Pmx 300 100 1 gm In Dextrose/Water 1 100ml.bag @ 100 mls/hr IVPB Q1H [facility] Rx#: [id number] Sodium Chloride 0.9% 1, 450 000 ml @ 75 mls/hr IV . [id number] [facility] Rx#:[id number] Oral 320 740 200 Output: Urine 1175 775 250 Other: Voiding Method Indwelling Catheter Bedside Commode Bedside Commode # Voids 0 0 # Bowel Movements 1 1 - Exam General: The patient is awake and alert, in no distress Eye: there is normal conjunctiva bilaterally. Neck: The neck is supple, there is no JVD. Cardiovascular: Normal S1-S2, no S3-S4, no murmurs. Respiratory: Lungs clear to auscultation bilaterally Gastrointestinal: Abdomen is soft, nontender Musculoskeletal: There is no pedal edema. Neurological:. Speech is normal. Skin: Skin is warm and dry - Labs CBC & Chem 7: 10/25/17 04:53 10/25/17 04:53 Labs: Abnormal Lab Results - Last 24 Hours (Table) 10/24/17 10/24/17 10/24/17 Range/Units 11:52 16:13 19:54 WBC (3.8-10.6) k/uL RBC (3.80-5.40) m/uL Hgb (11.4-16.0) gm/dL Hct (34.0-46.0) % Plt Count (150-450) k/uL Lymphocytes # (1.0-4.8) k/uL Carbon Dioxide (22-30) mmol/L BUN (7-17) mg/dL Glucose (74-99) mg/dL POC Glucose (mg/dL) 170 H 120 H 152 H (75-99) mg/dL 10/24/17 10/25/17 10/25/17 Range/Units 23:49 03:08 04:53 WBC 3.6 L (3.8-10.6) k/uL RBC 3.63 L (3.80-5.40) m/uL Hgb 10.7 L (11.4-16.0) gm/dL Hct 33.1 L (34.0-46.0) % Plt Count 87 L (150-450) k/uL Lymphocytes # 0.8 L (1.0-4.8) k/uL Carbon Dioxide (22-30) mmol/L BUN (7-17) mg/dL Glucose (74-99) mg/dL POC Glucose (mg/dL) 173 H 107 H (75-99) mg/dL 10/25/17 10/25/17 Range/Units 04:53 07:44 WBC (3.8-10.6) k/uL RBC (3.80-5.40) m/uL Hgb (11.4-16.0) gm/dL Hct (34.0-46.0) % Plt Count (150-450) k/uL Lymphocytes # (1.0-4.8) k/uL Carbon Dioxide 21 L (22-30) mmol/L BUN 40 H (7-17) mg/dL Glucose 156 H (74-99) mg/dL POC Glucose (mg/dL) 135 H (75-99) mg/dL Assessment and Plan Assessment: 1. Acute kidney injury: Now resolved. Creatinine 7.6 BUN 115 on admission. Improved significantly with IV fluid hydration almost back to normal range.. Possibly secondary to diarrhea, medications and hypotension. Metformin, Aldactazide, Mobic, lisinopril, and allopurinol have all been discontinued. Followed closely by nephrology. Renal ultrasound negative for renal mass or obstruction 2. Severe Metabolic acidosis: Secondary to #1 and diarrhea on presentation 3. Hypoglycemia: Resolved. 4. Hypotensive likely related to volume depletion and blood pressure medications. Now blood pressure within acceptable range 5. UTI: Place patient on Rocephin. Urine culture negative 6. Diarrhea : Appears to resolved. C. diff screen was negative 7. Hyperkalemia likely related to patient's acute kidney injury. Now back to normal range 8. Hyperphosphatemia: Secondary to acute kidney injury. Trending down as kidney functions improve 9. Thrombocytopenia: Exact etiology unclear. No evidence of bleeding. In a stable range 10. History of diabetes mellitus type 2 11. History of essential hypertension 12. History of gout due to her acute kidney injury will hold the allopurinol 13. Morbid obesity: BMI 55.7 -Start metoprolol 25 mg twice daily and continue monitor for PVC/bigeminy is on telemetry. Echocardiogram reviewed and normal. Consult cardiology for further evaluation. - Repeat lab work in the morning - Transfer outside the ICU to [facility] today -Plan discussed with nursing staff and fisher line at bedside.
--- NOTE | 2017-10-25 10:49 | P.PN ---
Subjective Patient is seen in follow-up for acute kidney injury and metabolic acidosis. Creatinine is down to 1 and bicarb level is 21. She is off all IV fluids. She is nonoliguric. No vomiting or diarrhea. Oral intake is good. Denies chest pain or shortness of breath. She has been having episodes of PVCs and was started on beta nay this morning. She denies any palpitations or lightheadedness. Vital signs are stable. General: The patient appeared well nourished and normally developed. HEENT: Head exam is unremarkable. Neck is without jugular venous distension. LUNGS: Lungs are clear to auscultation and percussion. Breath sounds decreased. HEART: Rate and Rhythm are regular. First and second heart sounds normal. No murmurs, rubs or gallops. ABDOMEN: Abdominal exam reveals normal bowel sounds. Non-tender and non- distended. No evidence of peritonitis. EXTREMITITES: No clubbing, cyanosis, or edema. Objective - Vital Signs Vital signs: Vital Signs Temp 97.6 F 10/25/17 08:00 Pulse 94 10/25/17 09:00 Resp 20 10/25/17 09:00 BP 118/68 10/25/17 09:00 Pulse Ox 94 L 10/25/17 09:00 Intake & Output 10/24/17 10/25/17 10/25/17 18:59 06:59 18:59 Intake Total 1370 740 300 Output Total 1175 775 250 Balance 195 -35 50 Weight 131.7 kg Intake: IV 1050 100 Dextrose 5% in Water 1, 100 000 ml @ 100 mls/hr IV . [id number] ONE with Sodium Bicarb (1 Meq/ml) 150 ml Rx#:[id number] Dextrose 5% in Water 1, 200 000 ml @ 100 mls/hr IV . [id number] JUANA with Sodium Bicarb (1 Meq/ml) 150 ml Rx#:[id number] Magnesium Sulfate-D5w Pmx 300 100 1 gm In Dextrose/Water 1 100ml.bag @ 100 mls/hr IVPB Q1H JUANA Rx#: [id number] Sodium Chloride 0.9% 1, 450 000 ml @ 75 mls/hr IV . [id number] JUANA Rx#:[id number] Oral 320 740 200 Output: Urine 1175 775 250 Other: Voiding Method Indwelling Catheter Bedside Commode Bedside Commode # Voids 0 0 # Bowel Movements 1 1 - Labs CBC & Chem 7: 10/25/17 04:53 10/25/17 04:53 Labs: Abnormal Lab Results - Last 24 Hours (Table) 10/24/17 10/24/17 10/24/17 Range/Units 11:52 16:13 19:54 WBC (3.8-10.6) k/uL RBC (3.80-5.40) m/uL Hgb (11.4-16.0) gm/dL Hct (34.0-46.0) % Plt Count (150-450) k/uL Lymphocytes # (1.0-4.8) k/uL Carbon Dioxide (22-30) mmol/L BUN (7-17) mg/dL Glucose (74-99) mg/dL POC Glucose (mg/dL) 170 H 120 H 152 H (75-99) mg/dL 10/24/17 10/25/17 10/25/17 Range/Units 23:49 03:08 04:53 WBC 3.6 L (3.8-10.6) k/uL RBC 3.63 L (3.80-5.40) m/uL Hgb 10.7 L (11.4-16.0) gm/dL Hct 33.1 L (34.0-46.0) % Plt Count 87 L (150-450) k/uL Lymphocytes # 0.8 L (1.0-4.8) k/uL Carbon Dioxide (22-30) mmol/L BUN (7-17) mg/dL Glucose (74-99) mg/dL POC Glucose (mg/dL) 173 H 107 H (75-99) mg/dL 10/25/17 10/25/17 Range/Units 04:53 07:44 WBC (3.8-10.6) k/uL RBC (3.80-5.40) m/uL Hgb (11.4-16.0) gm/dL Hct (34.0-46.0) % Plt Count (150-450) k/uL Lymphocytes # (1.0-4.8) k/uL Carbon Dioxide 21 L (22-30) mmol/L BUN 40 H (7-17) mg/dL Glucose 156 H (74-99) mg/dL POC Glucose (mg/dL) 135 H (75-99) mg/dL Assessment and Plan Plan: Assessment: 1. Nonoliguric acute kidney injury mostly prerenal due to hypotension/NSAIDS, improved with IV hydration. Creatinine was greater than 7 on admission and is down to 1.0 today. 2. Severe metabolic acidosis secondary to diarrhea and acute kidney injury. Improved. 3. Hyperphosphatemia secondary to acute kidney injury. Resolved with improving renal function. 4. Hypokalemia secondary to IV bicarb and hypomagnesemia. Improved post replacement. 5. Hypomagnesemia from poor oral intake. Improved post replacement. Plan: Encouraged oral intake. Avoid nephrotoxins. No changes from nephrology standpoint.
[2017-10-25 12:13] LABS: Glucose,Whole Blood 109 mg/dL (75-99)
--- NOTE | 2017-10-25 16:31 | P.PN ---
Subjective Progress Note Date: 10/25/17 A 67-year-old female patient, morbidly obese, BMI 55.7, diabetic along with history of hypertension and hyperlipidemia presented to her primary care physician's office because of generalized weakness, dehydration, diarrhea and drop in urine output. At the same time the patient was having increased nausea and dizziness and headache and feeling sick in general. The patient was immediately sent to the emergency department and the patient was found to have markedly abnormalities in her blood work. First of all, the patient was found to be hypothermic, hypotensive with a systolic in the mid 70s, and electrolytes showing a serum bicarb level of less than 5, potassium level of 6.0, and acute kidney injury with a creatinine of 7.26 with a BN of 115 and the patient's blood sugar was 43. Apparently, the patient was on a ketotic diet that she had been implementing over the past or weeks. Along with this diet the patient was able to lose around 24 pounds. She did not get the advisability dilatation. She'll obtain this diet BY herself and she was cutting her carbs and cancer treating mainly on protein rich foods. Approximately a week ago she started having these symptoms in her condition progressively got worse. In addition she started developing diarrhea and she reports liquid diarrhea around once every 2-3 hours and it got worse over this past few days. She became extremely dehydrated. Note that she is also on LISA inhibitor's for blood pressure control. With all these issues, she presented to the hospital. No chest pain. No angina. No pleurisy. No cough or sputum production. She had drop in urine output. The B[place] catheter was inserted initially urine output was minimal. No history of alcoholism. Substance abuse. She is on metformin for blood sugar control. Hypoglycemia was treated with D50 pushes which brought up her blood sugars nicely. The patient urinalysis showed only trace ketones. There was +2 glucose and a white cells. Chest x-ray reveals a segmental atelectatic changes and left lung base. Underlying pneumonia is felt to be less likely. She is receiving external warming. She received a total of 2 L of IV fluid in the emergency department and currently she is being placed on a bicarb infusion. The external warming has been done and the patient's temperature is, 97. She is awake and alert and she is following commands and answering questions appropriately. No altered mentation. No syncope. No loss in consciousness. No falls. No wounds in lower extremities. No open sores. No other complaints other things mentioned above. She has a remote history of colon cancer with a previous colectomy for chemotherapy and [place] [facility]. Hemodynamically, the patient is currently receiving IV fluids. She had to be placed on pressors and currently she is on 70 mics of norepinephrine infusion which is being infused in Her right upper extremity. We will able to wean off the pressors and the patient is producing adequate amount of urine output. On today's evaluation of 10/23/2017, the patient is looking well and she has no specific complaints. She has been aggressively resuscitated IV fluids and currently she is on a bicarb drip. Urine output is improved. Ultrasound the kidneys showed no evidence of any hydronephrosis. The patient was taken off levo fed earlier this morning. Her creatinine is improving. No significant electrode imbalance with bicarb level is up to 8. She is awake and alert and conscious and oriented. She is following commands and answering questions appropriately. She is denying having any chest pain cough or sputum production. No nausea or vomiting. No abdominal pain. More importantly there is no evidence of any diarrhea. She has a triple lumen catheter in the right IJ which is being utilized for fluids and pressors and electrolyte management. No other significant events overnight and the patient is quite stable at this point in time. On 10/24/2017 the patient is being seen in follow-up. The patient is improved significantly. Renal function is normalizing and creatinine is down to 1.2. Bicarb level is also improved and it's up to 22. The patient's potassium level is at 3.6. Magnesium level is at 1.4. She is having occasional PVCs. She is on no pressors. Echo cardiac rhythm showed a preserved LV function. Afebrile hemodynamically stable at this point. No altered mentation. No other complaint otherwise for now. No nausea or vomiting. She is gradually advancing her diet as tolerated. Hemoglobin stable at 10.8. On the patient has no specific complaints. Renal function is normalized. Acidosis has recovered. Still having PVCs and the patient will be started on beta blockers today. Echocardiac Amado was within normal limits. We'll also consult cardiology. She has no other specific complaints otherwise for now. Objective - Vital Signs Vital signs: Vital Signs Temp 98.0 F 10/25/17 14:34 Pulse 63 10/25/17 14:34 Resp 16 10/25/17 14:34 BP 91/50 10/25/17 14:34 Pulse Ox 98 10/25/17 14:34 Intake & Output 10/24/17 10/25/17 10/25/17 18:59 06:59 18:59 Intake Total 1370 740 300 Output Total 1175 775 250 Balance 195 -35 50 Weight 131.7 kg Intake: IV 1050 100 Dextrose 5% in Water 1, 100 000 ml @ 100 mls/hr IV . [id number] ONE with Sodium Bicarb (1 Meq/ml) 150 ml Rx#:[id number] Dextrose 5% in Water 1, 200 000 ml @ 100 mls/hr IV . [id number] JUANA with Sodium Bicarb (1 Meq/ml) 150 ml Rx#:[id number] Magnesium Sulfate-D5w Pmx 300 100 1 gm In Dextrose/Water 1 100ml.bag @ 100 mls/hr IVPB Q1H JUANA Rx#: [id number] Sodium Chloride 0.9% 1, 450 000 ml @ 75 mls/hr IV . [id number] JUANA Rx#:[id number] Oral 320 740 200 Output: Urine 1175 775 250 Other: Voiding Method Indwelling Catheter Bedside Commode Bedside Commode # Voids 0 1 # Bowel Movements 1 1 - Exam Gen. appearance the patient is morbidly obese, comfortable alert and awake following commands and answering questions appropriately. The patient has no respiratory distress Head exam was generally normal. There was no scleral icterus or corneal arcus. Mucous membranes were moist. Neck is supple and there is significant crowding of the posterior pharynx typical of an underlying obstructive sleep apnea. Right IJ triple-lumen catheter is in place Lungs were clear to auscultation and percussion, and with normal diaphragmatic excursion. No wheezes or rales were noted. Breath sounds are diminished in lung bases bilaterally. Cardiac exam revealed the PMI to be normally situated and sized. The rhythm was regular and no extrasystoles were noted during several minutes of auscultation. The first and second heart sounds were normal and physiologic splitting of the second heart sound was noted. There were no murmurs, rubs, clicks, or gallops. Abdomen the patient is morbidly obese and orders cannot be accurately palpated. There is no direct tenderness, rebound tenderness or guarding at this point. Examination of the extremities revealed easily palpable radial, femoral and pedal pulses. There was no cyanosis, clubbing or edema. Examination of the skin revealed no evidence of significant rashes, suspicious appearing nevi or other concerning lesions. Neurologically the patient is awake and alert and is no focal neurological deficits in the creatinine nerves are intact. - Labs CBC & Chem 7: 10/25/17 04:53 10/25/17 04:53 Labs: Abnormal Lab Results - Last 24 Hours (Table) 10/24/17 10/24/17 10/25/17 Range/Units 19:54 23:49 03:08 WBC (3.8-10.6) k/uL RBC (3.80-5.40) m/uL Hgb (11.4-16.0) gm/dL Hct (34.0-46.0) % Plt Count (150-450) k/uL Lymphocytes # (1.0-4.8) k/uL Carbon Dioxide (22-30) mmol/L BUN (7-17) mg/dL Glucose (74-99) mg/dL POC Glucose (mg/dL) 152 H 173 H 107 H (75-99) mg/dL 10/25/17 10/25/17 10/25/17 Range/Units 04:53 04:53 07:44 WBC 3.6 L (3.8-10.6) k/uL RBC 3.63 L (3.80-5.40) m/uL Hgb 10.7 L (11.4-16.0) gm/dL Hct 33.1 L (34.0-46.0) % Plt Count 87 L (150-450) k/uL Lymphocytes # 0.8 L (1.0-4.8) k/uL Carbon Dioxide 21 L (22-30) mmol/L BUN 40 H (7-17) mg/dL Glucose 156 H (74-99) mg/dL POC Glucose (mg/dL) 135 H (75-99) mg/dL 10/25/17 Range/Units 12:12 WBC (3.8-10.6) k/uL RBC (3.80-5.40) m/uL Hgb (11.4-16.0) gm/dL Hct (34.0-46.0) % Plt Count (150-450) k/uL Lymphocytes # (1.0-4.8) k/uL Carbon Dioxide (22-30) mmol/L BUN (7-17) mg/dL Glucose (74-99) mg/dL POC Glucose (mg/dL) 109 H (75-99) mg/dL Assessment and Plan Plan: Assessment 1 acute kidney injury, multifactorial. Recovered 2 acute hypotension, most likely hypovolemic, recovered 3 acute hyperkalemia without any acute EKG changes, recovered 4 acute diarrhea with liquidy bowel movement, recovered 5 severe double it acidosis, recovered 6 morbid obesity with a BMI 55.7 7 ketotic diet for weight loss 8 hypoglycemia probably related to metformin effect in the setting of renal failure, treated 9 hypertension, per history 10 diabetes mellitus type 2, per history 11 thrombocytopenia, stable platelet count 12 atelectatic changes and left lung base, pneumonia doubtful 13 hypothermia, receiving external warming with subsequent improvement in the body temperature, recovered 14 colon cancer with a previous colectomy followed by systemic chemotherapy and the patient is in remission 15 frequent PVCs and the patient is demonstrating a normal echocardiogram. Could be related to electrodes imbalance. Plan Transfer the patient to [facility] with telemetry. Start the patient metoprolol. Cardiology consultation regarding the frequent PVCs. Currently the ICU today.
[2017-10-25 16:58] LABS: Glucose,Whole Blood 119 mg/dL (75-99)
[2017-10-25 20:41] LABS: Glucose,Whole Blood 141 mg/dL (75-99)
[2017-10-25] MEDS: METOPROLOL TARTRATE 12.5 MG TAB PO SCH (20:42)
[2017-10-26 07:09] LABS: Glucose,Whole Blood 120 mg/dL (75-99)
[2017-10-26 07:48] LABS: Basophils % (A) 0 %; Eosinophils # (A) 0.3 k/uL (0-0.7); Eosinophils % (A) 6 %; HCT 36.6 % (34.0-46.0); HGB 11.9 gm/dL (11.4-16.0); Lymphocytes # (A) 1.2 k/uL (1.0-4.8); Lymphocytes % (A) 25 %; MCH 30.1 pg (25.0-35.0); MCHC 32.4 g/dL (31.0-37.0); Mean Platelet Volume 7.5; Monocytes # (A) 0.3 k/uL (0-1.0); Monocytes % (A) 5 %; Neutrophils % (A) 63 %; Platelet Count 113 k/uL (150-450); RBC 3.94 m/uL (3.80-5.40); RDW 15.3 % (11.5-15.5); WBC 4.8 k/uL (3.8-10.6)
[2017-10-26 08:02] LABS: Magnesium 1.7 mg/dL (1.6-2.3); Phosphorus 2.8 mg/dL (2.5-4.5); Potassium 4.6 mmol/L (3.5-5.1)
[2017-10-26] MEDS: INSULIN ASPART 100 UNIT/ML 1 ML 10 ML VIAL SQ SCH ×2 (08:04→13:09)
[2017-10-26] MEDS: HEPARIN SODIUM,PORCINE 5,000 UNIT/ML 1 ML VIAL SQ SCH (08:30)
[2017-10-26] MEDS: PANTOPRAZOLE 40 MG TABLET PO SCH (08:30)
[2017-10-26] MEDS: METOPROLOL TARTRATE 12.5 MG TAB PO SCH (08:30)
[2017-10-26] MEDS: ASPIRIN 325 MG TAB PO SCH (08:30)
--- NOTE | 2017-10-26 10:34 | P.PN ---
Subjective Progress Note Date: 10/26/17 This is a 67-year-old female with a known past medical history of diabetes mellitus type 2, hyperlipidemia and hypertension. Patient has been on a keto diet for the last month. Patient reports that she tried this diet on her own. On Thursday patient started to really not feel well. She complained of nausea and dizziness headache and started to have diarrhea. Patient reports having multiple loose watery stools. She has not been on antibiotics recently. She continued to take her blood sugar and blood pressure medications. She does not check blood sugar or BP at home. Patient's symptoms continued to worsen she went to see Dr. Olmstead in the office and was sent to the emergency room. Patient will be admitted to the ICU. She also had complained of some lower back pain and also decrease in urine production. She reports making a small amount of urine this morning. Patient has been admitted to the hospital for acute renal failure. Creatinine was 7.26 and BUN was 1:15. She was also hypoglycemic with a blood sugar of 43. She received an amp of dextrose. Repeat blood sugar is 94. Potassium 6 chloride 113 CO2 less than 5 lactic acid 0.7 phosphorus 9.9 platelets 84. Patient denies any signs or symptoms of bleeding. She did have evidence of a UTI. She was started on Rocephin. Urine culture pending. Patient was hypotensive and has received a total of 2 L through fluid boluses. And she is currently on 10 mics of levo. Chest x-ray showing a retrocardiac opacity on the lateral image overlying the thoracic spine and favored to represent atelectasis, however early pneumonia is possible. Patient denies any cough fever chills or sweats. Patient has been admitted to the ICU and nephrology and critical care services have been consulted. 10/23/2017 patient remains in the ICU on 4 mics of levo and D5 with sodium bicarbonate drip. Patient's urine output has shown improvement. She's no longer hypothermic. Lowest temp 93.6. Patient has had no further diarrhea. Denies any abdominal pain. Denies any nausea or vomiting. Denies any chest pain or shortness of breath. Is being followed by pulmonary service and nephrology. CO2 has gone up from 5 to 8, creatinine has decreased from 7.26 down to 3.30 10/26/2017 over the weekend patient was able to be transferred out of the ICU. Creatinine had normalized at 1. Is up today at 1.15. Patient had PVCs and episodes of trigeminy over the weekend. Metoprolol 12.5 mg twice a day was ordered. Cardiology was consulted. Patient denies any chest pain or heart palpitations. Denies any nausea or vomiting. Reports having bowel movements no diarrhea. Denies any difficulty urinating. Objective - Vital Signs Vital signs: Vital Signs Temp 97.4 F L 10/26/17 08:25 Pulse 62 10/26/17 08:25 Resp 16 10/26/17 08:25 BP 104/66 10/26/17 08:25 Pulse Ox 97 10/26/17 08:25 Intake & Output 10/25/17 10/26/17 10/26/17 18:59 06:59 18:59 Intake Total 540 1000 Output Total 250 Balance 290 1000 Intake: IV 100 Magnesium Sulfate-D5w Pmx 100 1 gm In Dextrose/Water 1 100ml.bag @ 100 mls/hr IVPB Q1H JUANA Rx#: [id number] Oral 440 1000 Output: Urine 250 Other: Voiding Method Bedside Commode # Voids 1 1 # Bowel Movements 1 - Exam Head normocephalic Neck supple Lungs clear to auscultation bilaterally no wheezing or crackles Heart regular rate and rhythm S1-S2, no rub or gallop Abdomen is soft nontender nondistended positive bowel sounds no hepatosplenomegaly Extremities no edema Neuro alert and orientated to 3 - Labs CBC & Chem 7: 10/26/17 07:32 10/26/17 07:32 Labs: Abnormal Lab Results - Last 24 Hours (Table) 10/25/17 10/25/17 10/25/17 Range/Units 12:12 16:39 20:40 Plt Count (150-450) k/uL BUN (7-17) mg/dL Creatinine (0.52-1.04) mg/dL Glucose (74-99) mg/dL POC Glucose (mg/dL) 109 H 119 H 141 H (75-99) mg/dL 10/26/17 10/26/17 10/26/17 Range/Units 07:05 07:32 07:32 Plt Count 113 L (150-450) k/uL BUN 36 H (7-17) mg/dL Creatinine 1.15 H (0.52-1.04) mg/dL Glucose 123 H (74-99) mg/dL POC Glucose (mg/dL) 120 H (75-99) mg/dL Assessment and Plan Assessment: 1. Acute kidney injury: Creatinine 7.6 BUN 115 on admission. Patient is receiving IV fluids. Possibly secondary to diarrhea, medications and hypotension. Metformin, Aldactazide, Mobic, lisinopril, and allopurinol have all been discontinued. Followed closely by nephrology. Renal ultrasound negative for renal mass or obstruction. Creatinine has gone from 1-1.15. Nephrology following 2. Severe Metabolic acidosis: CO2 less than 5 on admission. likely related to patient's diarrhea, renal failure and keto diet. Improved with the sodium bicarbonate 3. Hypoglycemia: Possibly related to the keto diet as well as taking the metformin and glipizide. Diabetic medications have been discontinued. Place patient on Accu-Cheks. Blood sugars are showing improvement. Receiving D D5 IV fluids. Sliding scale coverage at this morning 4. Hypotensive likely related to volume depletion and blood pressure medications. Continue with IV fluids Continue IV fluids and levo. 5. UTI: Place patient on Rocephin. Urine culture negative 6. Diarrhea : Appears to resolved. C. diff negative 7. Hyperkalemia likely related to patient's acute kidney injury and the spironolactone and LISA. resolved 8. Hyperphosphatemia: Secondary to acute kidney injury. Trending down as kidney functions improve 9. Thrombocytopenia: Exact etiology unclear. No evidence of bleeding. In stable range 10. History of diabetes mellitus type 2 11. History of essential hypertension 12. History of gout due to her acute kidney injury will hold the allopurinol 13. Morbid obesity: BMI 55.7 14. Acute pancreatitis: Lipase 916 and amylase 167. Abdominal pain has resolved. No previous history of alcohol use. Liver ultrasound had shown multiple gallstones. However lipase amylase had trended down. Patient tolerating diet. And no abdominal pain. 15. Frequent PVCs with normal echo. Patient started metoprolol 12.5 mg twice a day. Await cardiology evaluation. Possibly related to hypo-magnesium. Patient receiving magnesium supplement. Magnesium level I.7 GI prophylaxis Protonix and DVT prophylaxis subcu heparin Anticipate discharge possibly later today or tomorrow I performed an examination of the patient and discussed their management with the physician Photovoltaic Testing Technician. I have reviewed the Physician Photovoltaic Testing Technician's notes and agree with the documented findings and plan of care
[2017-10-26] MEDS: MAGNESIUM SULFATE-D5W PMX 1 GM in DEXTROSE/WATER 1 100ML.BAG IVPB SCH ×2 (11:30→13:09)
[2017-10-26 12:04] LABS: Glucose,Whole Blood 118 mg/dL (75-99)
--- NOTE | 2017-10-26 13:09 | P.PN ---
Subjective Progress Note Date: 10/26/17 Principal diagnosis: Acute kidney injury, multifactorial, recovered, acute hypotension, hypovolemia, recovered A 67-year-old female patient, morbidly obese, BMI 55.7, diabetic along with history of hypertension and hyperlipidemia presented to her primary care physician's office because of generalized weakness, dehydration, diarrhea and drop in urine output. At the same time the patient was having increased nausea and dizziness and headache and feeling sick in general. The patient was immediately sent to the emergency department and the patient was found to have markedly abnormalities in her blood work. First of all, the patient was found to be hypothermic, hypotensive with a systolic in the mid 70s, and electrolytes showing a serum bicarb level of less than 5, potassium level of 6.0, and acute kidney injury with a creatinine of 7.26 with a BN of 115 and the patient's blood sugar was 43. Apparently, the patient was on a ketotic diet that she had been implementing over the past or weeks. Along with this diet the patient was able to lose around 24 pounds. She did not get the advisability dilatation. She'll obtain this diet BY herself and she was cutting her carbs and cancer treating mainly on protein rich foods. Approximately a week ago she started having these symptoms in her condition progressively got worse. In addition she started developing diarrhea and she reports liquid diarrhea around once every 2-3 hours and it got worse over this past few days. She became extremely dehydrated. Note that she is also on LISA inhibitor's for blood pressure control. With all these issues, she presented to the hospital. No chest pain. No angina. No pleurisy. No cough or sputum production. She had drop in urine output. The Bingham catheter was inserted initially urine output was minimal. No history of alcoholism. Substance abuse. She is on metformin for blood sugar control. Hypoglycemia was treated with D50 pushes which brought up her blood sugars nicely. The patient urinalysis showed only trace ketones. There was +2 glucose and a white cells. Chest x-ray reveals a segmental atelectatic changes and left lung base. Underlying pneumonia is felt to be less likely. She is receiving external warming. She received a total of 2 L of IV fluid in the emergency department and currently she is being placed on a bicarb infusion. The external warming has been done and the patient's temperature is, 97. She is awake and alert and she is following commands and answering questions appropriately. No altered mentation. No syncope. No loss in consciousness. No falls. No wounds in lower extremities. No open sores. No other complaints other things mentioned above. She has a remote history of colon cancer with a previous colectomy for chemotherapy and she [place] her treatment [facility]. Hemodynamically, the patient is currently receiving IV fluids. She had to be placed on pressors and currently she is on 70 mics of norepinephrine infusion which is being infused in Her right upper extremity. We will able to wean off the pressors and the patient is producing adequate amount of urine output. On today's evaluation of 10/23/2017, the patient is looking well and she has no specific complaints. She has been aggressively resuscitated IV fluids and currently she is on a bicarb drip. Urine output is improved. Ultrasound the kidneys showed no evidence of any hydronephrosis. The patient was taken off levo fed earlier this morning. Her creatinine is improving. No significant electrode imbalance with bicarb level is up to 8. She is awake and alert and conscious and oriented. She is following commands and answering questions appropriately. She is denying having any chest pain cough or sputum production. No nausea or vomiting. No abdominal pain. More importantly there is no evidence of any diarrhea. She has a triple lumen catheter in the right IJ which is being utilized for fluids and pressors and electrolyte management. No other significant events overnight and the patient is quite stable at this point in time. On 10/24/2017 the patient is being seen in follow-up. The patient is improved significantly. Renal function is normalizing and creatinine is down to 1.2. Bicarb level is also improved and it's up to 22. The patient's potassium level is at 3.6. Magnesium level is at 1.4. She is having occasional PVCs. She is on no pressors. Echo cardiac rhythm showed a preserved LV function. Afebrile hemodynamically stable at this point. No altered mentation. No other complaint otherwise for now. No nausea or vomiting. She is gradually advancing her diet as tolerated. Hemoglobin stable at 10.8. On the patient has no specific complaints. Renal function is normalized. Acidosis has recovered. Still having PVCs and the patient will be started on beta blockers today. Echocardiac Amado was within normal limits. We'll also consult cardiology. She has no other specific complaints otherwise for now. On 10/26/2017 patient seen in follow-up on the surgical floor. She is sitting up in the chair, in no distress, lung sounds are clear to auscultation, no rhonchi, no wheezes, no dyspnea. Room air pulse ox is 97%, vital signs are stable, she is afebrile. Today's lab work was negative for any evidence of leukocytosis, WBC is 4.8, hemoglobin of 11.9, electrolytes are within normal limits, BUN is 36, creatinine was 1.15. Patient is tolerating oral diet, she is voiding, and having bowel movements. Denies any chest pain, denies any palpitations, denies any nausea or vomiting, no diarrhea. C. diff was negative. Urine culture remains negative, patient has been treated with Rocephin for evidence of UTI. Hypertension has resolved, patient has been evaluated by cardiology for the frequent PVCs with normal Echo, had been started on metoprolol 12.5 twice daily. Patient's magnesium has been supplemented, no specific complaints today. Objective - Vital Signs Vital signs: Vital Signs Temp 97.4 F L 10/26/17 08:25 Pulse 62 10/26/17 08:25 Resp 16 10/26/17 08:25 BP 104/66 10/26/17 08:25 Pulse Ox 97 10/26/17 08:25 Intake & Output 10/25/17 10/26/17 10/26/17 18:59 06:59 18:59 Intake Total 540 1000 Output Total 250 Balance 290 1000 Intake: IV 100 Magnesium Sulfate-D5w Pmx 100 1 gm In Dextrose/Water 1 100ml.bag @ 100 mls/hr IVPB Q1H [facility] Rx#: [id number] Oral 440 1000 Output: Urine 250 Other: Voiding Method Bedside Commode # Voids 1 1 # Bowel Movements 1 - Exam Gen. appearance the patient is morbidly obese, comfortable alert and awake following commands and answering questions appropriately. The patient has no respiratory distress Head exam was generally normal. There was no scleral icterus or corneal arcus. Mucous membranes were moist. Neck is supple and there is significant crowding of the posterior pharynx typical of an underlying obstructive sleep apnea. Right IJ triple-lumen catheter is in place Lungs were clear to auscultation and percussion, and with normal diaphragmatic excursion. No wheezes or rales were noted. Breath sounds are diminished in lung bases bilaterally. Cardiac exam revealed the PMI to be normally situated and sized. The rhythm was regular and no extrasystoles were noted during several minutes of auscultation. The first and second heart sounds were normal and physiologic splitting of the second heart sound was noted. There were no murmurs, rubs, clicks, or gallops. Abdomen the patient is morbidly obese and orders cannot be accurately palpated. There is no direct tenderness, rebound tenderness or guarding at this point. Examination of the extremities revealed easily palpable radial, femoral and pedal pulses. There was no cyanosis, clubbing or edema. Examination of the skin revealed no evidence of significant rashes, suspicious appearing nevi or other concerning lesions. Neurologically the patient is awake and alert and is no focal neurological deficits in the creatinine nerves are intact. - Labs CBC & Chem 7: 10/26/17 07:32 10/26/17 07:32 Labs: Abnormal Lab Results - Last 24 Hours (Table) 10/25/17 10/25/17 10/26/17 Range/Units 16:39 20:40 07:05 Plt Count (150-450) k/uL BUN (7-17) mg/dL Creatinine (0.52-1.04) mg/dL Glucose (74-99) mg/dL POC Glucose (mg/dL) 119 H 141 H 120 H (75-99) mg/dL 10/26/17 10/26/17 10/26/17 Range/Units 07:32 07:32 11:51 Plt Count 113 L (150-450) k/uL BUN 36 H (7-17) mg/dL Creatinine 1.15 H (0.52-1.04) mg/dL Glucose 123 H (74-99) mg/dL POC Glucose (mg/dL) 118 H (75-99) mg/dL Assessment and Plan Plan: Assessment: 1 acute kidney injury, multifactorial. Recovered 2 acute hypotension, most likely hypovolemic, recovered 3 acute hyperkalemia without any acute EKG changes, recovered 4 acute diarrhea with liquidy bowel movement, recovered. C. diff toxin was negative 5 severe double it acidosis, recovered 6 morbid obesity with a BMI 55.7 7 ketotic diet for weight loss 8 hypoglycemia probably related to metformin effect in the setting of renal failure, treated 9 hypertension, per history 10 diabetes mellitus type 2, per history 11 thrombocytopenia, stable platelet count 12 atelectatic changes and left lung base, pneumonia doubtful 13 hypothermia, receiving external warming with subsequent improvement in the body temperature, recovered 14 colon cancer with a previous colectomy followed by systemic chemotherapy and the patient is in remission 15 frequent PVCs and the patient is demonstrating a normal echocardiogram. Could be related to electrolyte imbalance. Plan Patient remains stable on the surgical floor, no acute events overnight, no specific complaints, no chest pain, no dyspnea. She is tolerating oral diet, no nausea, no vomiting no diarrhea, her mentation is normal, vital signs are stable, no hypotension. From pulmonary/critical care standpoint patient remains stable, and we will see the patient on as-needed basis. I performed a history & physical examination of the patient and discussed their management with my nurse practitioner, Meghana Fischer. I reviewed the nurse practitioner's note and agree with the documented findings and plan of care. Lung sounds are clear. The findings and the impression was discussed with the patient. I attest to the documentation by the nurse practitioner. Time with Patient: Less than 30
--- NOTE | 2017-10-26 14:23 | P.CRDCN ---
History of Present Illness History of present illness: Mrs. Cooper is a pleasant 67-year-old female past medical history significant for diabetes mellitus, hypertension, dyslipidemia, colon cancer s/p colectomy and morbid obesity. She denies history of coronary artery disease and does not follow with anyone in the office. We have been asked to see her in consultation for frequent PVC's. She presented to the hospital 10/22 with symptoms of weakness. She had been doing a keto diet and lost 24 lbs in the last few weeks. She was found to have acute renal failure, significant hypotension, hyperkalemia , metabolic acidosis, pancreatitis and urinary tract infection. Over the previous day or so she has developed frequent PVC's and for this reason we have been asked to evaluate her. She denies symptoms of chest pain, shortness of breath, nausea, vomiting, diaphoresis, palpitations or dizziness. EKG reveals sinus mechanism with no acute ST or T-wave abnormalities. Echocardiogram obtained earlier in the admission reveals preserved left ventricular systolic function with ejection fraction 55-60% with mildly thickened aortic valve mean gradient 8.29 mmHg. She is currently being maintained on aspirin 81 mg daily and Lopressor 12.5 mg twice a day. Review of Systems At the time of my exam: CONSTITUTIONAL: Denies fever. Denies chills. EYES: Denies blurred vision. Denies vision changes. Denies eye pain. EARS, NOSE, MOUTH & THROAT: Denies headache. Denies sore throat. Denies ear pain. CARDIOVASCULAR: Denies chest pain. Denies shortness of breath. Denies orthopnea. Denies PND. Denies palpitations. RESPIRATORY: Denies cough. GASTROINTESTINAL: Denies abdominal pain. Denies diarrhea. Denies constipation. Denies nausea. Denies vomiting. MUSCULOSKELETAL: Denies myalgias. INTEGUMENTARY: Denies pruitis. Denies rash. NEUROLOGIC: Denies numbness. Denies tingling. Denies weakness. PSYCHIATRIC: Denies anxiety. Denies depression. ENDOCRINE: Denies fatigue. Denies weight change. Denies polydipsia. Denies polyurina. GENITOURINARY: Denies burning, hematuria or urgency with micturation. HEMATOLOGIC: Denies history of anemia. Denies bleeding. Past Medical History Past Medical History: Diabetes Mellitus, Hyperlipidemia, Hypertension Additional Past Medical History / Comment(s): Morbid obesity, diabetes mellitus , hypertension, hyperlipidemia, colon cancer status post colectomy followed by systemic chemotherapy in 2000, acid reflux and heartburn, nephrolithiasis History of Any Multi-Drug Resistant Organisms: None Reported Past Surgical History: Section Additional Past Surgical History / Comment(s): "stated 1/3 of colon removed 2000 d/t cancer", [facility] chest-since removed, colonoscopy, x3 c-sections Past Anesthesia/Blood Transfusion Reactions: No Reported Reaction Smoking Status: Never smoker - Past Family History Mother Family Medical History: Dementia Additional Family Medical History / Comment(s): low bp Father Family Medical History: Diabetes Mellitus Medications and Allergies Home Medications Medication Instructions Recorded Confirmed Type Allopurinol [Zyloprim] 300 mg PO DAILY 10/22/17 10/22/17 History Aspirin EC [Ecotrin] 325 mg PO DAILY 10/22/17 10/22/17 History Ergocalciferol (Vitamin D2) 50,000 unit PO Q7D 10/22/17 10/22/17 History [Vitamin D2] Lisinopril [Prinivil] 20 mg PO DAILY 10/22/17 10/22/17 History Lisinopril [Zestril] 20 mg PO DAILY 10/22/17 10/22/17 History Meloxicam [Mobic] 7.5 mg PO BID 10/22/17 10/22/17 History Spironolactone-Hctz 25-25Mg 1 tab PO DAILY 10/22/17 10/22/17 History [Aldactazide 25-25Mg] glipiZIDE [Glucotrol] 5 mg PO AC-BID 10/22/17 10/22/17 History metFORMIN HCL [Glucophage] 500 mg PO BID 10/22/17 10/22/17 History Allergies Allergy/AdvReac Type Severity Reaction Status Date / Time erythromycin base Allergy Rash/Hives Verified 10/22/17 11:29 Penicillins Allergy Rash/Hives Verified 10/22/17 11:29 Physical Exam Vitals: Vital Signs Temp Pulse Pulse Pulse Pulse Resp BP 10/26/17 08:25 97.4 F L 62 16 104/66 10/26/17 07:11 10/26/17 00:15 98.1 F 75 14 98/47 10/25/17 20:37 92 10/25/17 19:20 98.5 F 59 L 104/62 06/24/18 18:10 16 10/25/17 14:34 98.0 F 63 16 91/50 Pulse Ox 10/26/17 08:25 97 10/26/17 07:11 97 10/26/17 00:15 97 10/25/17 20:37 10/25/17 19:20 97 10/25/17 18:10 10/25/17 14:34 98 Intake and Output 10/25/17 10/26/17 10/26/17 22:59 06:59 14:59 Intake Total 740 500 Balance 740 500 Intake: Oral 740 500 Other: # Voids 1 1 # Bowel Movements 1 Blood pressure 104/66 heart rate 62 afebrile maintaining oxygen saturation on room air GENERAL: This is a 67-year-old female in no apparent distress at the time of my examination. Obese. HEENT: Head is atraumatic, normocephalic. Pupils are equal, round. Sclerae anicteric. Conjunctivae are clear. Mucous membranes of the mouth are moist. Neck is supple. There is no jugular venous distention. No carotid bruit is heard. LUNGS: Clear to auscultation no wheezes, rales or rhonchi. No chest wall tenderness is noted on palpation or with deep breathing. HEART: Regular rate and rhythm with faint systolic murmur at the base, no rubs or gallops. S1 and S2 heard. ABDOMEN: Soft, nontender. Bowel sounds are heard. No organomegaly noted. EXTREMITIES: No evidence of peripheral edema and no calf tenderness noted. VASCULAR: Radial and dorsalis pedis pulses palpated, no evidence of clubbing. NEUROLOGIC: Patient is awake, alert and oriented x3. Results 10/26/17 07:32 10/26/17 07:32 CBC 10/26/17 Range/Units 07:32 WBC 4.8 (3.8-10.6) k/uL RBC 3.94 (3.80-5.40) m/uL Hgb 11.9 (11.4-16.0) gm/dL Hct 36.6 (34.0-46.0) % Plt Count 113 L (150-450) k/uL Comprehensive Metabolic Panel 10/26/17 Range/Units 07:32 Sodium 141 (137-145) mmol/L Potassium 4.6 (3.5-5.1) mmol/L Chloride 106 (98-107) mmol/L Carbon Dioxide 27 (22-30) mmol/L BUN 36 H (7-17) mg/dL Creatinine 1.15 H (0.52-1.04) mg/dL Glucose 123 H (74-99) mg/dL Calcium 9.0 (8.4-10.2) mg/dL Current Medications Generic Name Dose Route Start Last Admin Trade Name Freq PRN Reason Stop Dose Admin Aspirin 81 mg 10/27/17 09:00 Aspirin PO DAILY [facility] Ergocalciferol 50,000 unit 10/22/17 15:00 10/22/17 16:18 Vitamin D2 PO Not Given Q7D [facility] Heparin Sodium (Porcine) 5,000 unit 10/22/17 17:15 10/26/17 08:30 Heparin SQ 5,000 unit Q8HR JUANA Administration Norepinephrine Bitartrate 4 mg in 250 mls @ 0 mls/hr 10/22/17 14:15 10/23/17 10:15 Levophed-0.9% Nacl 4 Mg/250ml Pmx IV 0 mcg/min .Q0M JUANA 0 mls/hr Titrate Infusion Insulin Aspart 0 unit 10/25/17 12:30 10/26/17 08:04 Novolog SQ Not Given ACHS [facility] Protocol Metoprolol Tartrate 12.5 mg 10/25/17 21:00 10/26/17 08:30 Lopressor PO 12.5 mg BID JUANA Administration Miscellaneous Information 1 each 10/24/17 08:09 Magnesium Per Protocol MISCELLANE DAILY PRN Per Protocol Protocol Miscellaneous Information 1 each 10/24/17 08:09 Potassium Per Protocol MISCELLANE DAILY PRN Per Protocol Protocol Naloxone HCl 0.2 mg 10/22/17 13:58 Narcan IV Q2M PRN Opioid Reversal Ondansetron HCl 4 mg 10/22/17 15:36 Zofran IVP Q6HR PRN Vomiting Pantoprazole Sodium 40 mg 10/23/17 07:30 10/26/17 08:30 Protonix PO 40 mg AC-[id number] [facility] Administration Intake and Output 10/25/17 10/26/17 10/26/17 22:59 06:59 14:59 Intake Total 740 500 Balance 740 500 Intake: Oral 740 500 Other: # Voids 1 1 # Bowel Movements 1 10/26/17 07:32 10/26/17 07:32 Assessment and Plan Assessment: ASSESSMENT 1. Frequent PVCs secondary to hypomagnesemia 2. Hypomagnesemia 3. Acute kidney injury 4. Metabolic acidosis, resolved 5. Pancreatitis 6. Hyperkalemia on admission, resolved 7. Hypertension with hypotension on admission. Antihypertensives been on hold. 8. Diabetes mellitus 9. Obesity PLAN From a cardiac perspective the patient is stable. PVCs secondary to hypomagnesemia which has been replaced. Continue with low dose beta blockers. No further cardiac work-up, follow up with Dr. TERELL Javier in 2-3 weeks. Thank you kindly for this consultation. Nurse Practitioner note has been reviewed, I agree with a documented findings and plan of care. Patient was seen and examined.
--- NOTE | 2017-10-26 15:17 | P.DS ---
Providers Date of admission: 10/22/17 13:58 Expected date of discharge: 10/26/17 Attending physician: Al Olmstead Consults: 10/22/17 13:58 Consult Physician Stat Consulting Provider: Nj Doty Consult Reason/Comments: Metabolic acidosis, acute renal failure, hypotension , suspect early sepsis Do you want consulting provider notified?: Yes Consult Physician Stat Consulting Provider: Ursula Rose Consult Reason/Comments: Acute renal failure Do you want consulting provider notified?: Yes 10/25/17 09:46 Consult Physician Routine Consulting Provider: Nba Obrien Consult Reason/Comments: Bigeminy/Trigeminy-new onset Do you want consulting provider notified?: Yes Primary care physician: Al Olmstead [facility] Course: Discharge diagnosis 1. Acute kidney injury: Creatinine 7.6 BUN 115 on admission. Patient is receiving IV fluids. Possibly secondary to diarrhea, medications and hypotension. Metformin, Aldactazide, Mobic, lisinopril, and allopurinol have all been discontinued. Followed closely by nephrology. Renal ultrasound negative for renal mass or obstruction. Creatinine has gone from 1-1.15. Nephrology following 2. Severe Metabolic acidosis: CO2 less than 5 on admission. likely related to patient's diarrhea, renal failure and keto diet. Improved with the sodium bicarbonate 3. Hypoglycemia: Possibly related to the keto diet as well as taking the metformin and glipizide. Diabetic medications have been discontinued. Place patient on Accu-Cheks. Blood sugars are showing improvement. Receiving D D5 IV fluids. Sliding scale coverage at this morning. A1c 5.6. Patient has not required insulin. Her metformin and glipizide have been discontinued. 4. Hypotensive likely related to volume depletion and blood pressure medications. Patient required IV fluids and Levophed. Blood pressures are showing improvement. 5. UTI: Urine culture negative. Completed antibiotic treatment during hospitalization 6. Diarrhea : Appears to resolved. C. diff negative 7. Hyperkalemia likely related to patient's acute kidney injury and the spironolactone and LISA. resolved 8. Hyperphosphatemia: Secondary to acute kidney injury. Resolved his kidney function improved 9. Thrombocytopenia: Exact etiology unclear. No evidence of bleeding. In stable range 10. History of diabetes mellitus type 2 11. History of essential hypertension 12. History of gout due to her acute kidney injury will hold the allopurinol 13. Morbid obesity: BMI 55.7 14. Acute pancreatitis: Lipase 916 and amylase 167. Abdominal pain has resolved. No previous history of alcohol use. Liver ultrasound had shown multiple gallstones. However lipase amylase had trended down. Patient tolerating diet. And no abdominal pain. 15. Frequent PVCs with normal echo. Patient started metoprolol 12.5 mg twice a day. PVCs secondary to hypo-magnesium. Patient receiving magnesium supplement. Magnesium level I.7 Hospital course This is a 67-year-old female with a known past medical history of diabetes mellitus type 2, hyperlipidemia and hypertension. Patient has been on a keto diet for the last month. Patient reports that she tried this diet on her own. On Thursday patient started to really not feel well. She complained of nausea and dizziness headache and started to have diarrhea. Patient reports having multiple loose watery stools. She has not been on antibiotics recently. She continued to take her blood sugar and blood pressure medications. She does not check blood sugar or BP at home. Patient's symptoms continued to worsen she went to see Dr. Olmstead in the office and was sent to the emergency room. Patient will be admitted to the ICU. She also had complained of some lower back pain and also decrease in urine production. She reports making a small amount of urine this morning. Patient has been admitted to the hospital for acute renal failure. Creatinine was 7.26 and BUN was 1:15. She was also hypoglycemic with a blood sugar of 43. She received an amp of dextrose. Repeat blood sugar is 94. Potassium 6 chloride 113 CO2 less than 5 lactic acid 0.7 phosphorus 9.9 platelets 84. Patient denies any signs or symptoms of bleeding. She did have evidence of a UTI. She was started on Rocephin. Urine culture pending. Patient was hypotensive and has received a total of 2 L through fluid boluses. And she is currently on 10 mics of levo. Chest x-ray showing a retrocardiac opacity on the lateral image overlying the thoracic spine and favored to represent atelectasis, however early pneumonia is possible. Patient denies any cough fever chills or sweats. Patient has been admitted to the ICU and nephrology and critical care services have been consulted. 10/23/2017 patient remains in the ICU on 4 mics of levo and D5 with sodium bicarbonate drip. Patient's urine output has shown improvement. She's no longer hypothermic. Lowest temp 93.6. Patient has had no further diarrhea. Denies any abdominal pain. Denies any nausea or vomiting. Denies any chest pain or shortness of breath. Is being followed by pulmonary service and nephrology. CO2 has gone up from 5 to 8, creatinine has decreased from 7.26 down to 3.30 10/26/2017 over the weekend patient was able to be transferred out of the ICU. Creatinine had normalized at 1. Is up today at 1.15. Patient had PVCs and episodes of trigeminy over the weekend. Metoprolol 12.5 mg twice a day was ordered. Cardiology was consulted. Patient denies any chest pain or heart palpitations. Denies any nausea or vomiting. Reports having bowel movements no diarrhea. Denies any difficulty urinating. Patient followed closely by nephrology, critical care service and cardiology. Kidney functions have normalized. Creatinine 7.6 on admission improved with IV fluids and discontinuing of nephrotoxic medications. Creatinine at discharge 1.15. Nephrology has cleared her for discharge. Patient's lisinopril, Aldactazide, Mobic, allopurinol and metformin were all discontinued during this admission. Due to the elevated creatinine. Creatinine has normalized. However , BP is still on the lower side. Blood pressure this afternoon was 104/66. We' ll monitor patient off of her home blood pressure medications. Glipizide also discontinued due to hypoglycemia. Patient had required only 1 unit of insulin last night. A1c was 5.6 and her a.m. blood sugar was 123. We'll monitor patient off of her metformin and glipizide. Cardiology did see patient due to PVCs. Which was likely related to hypoglycemia. Patient received magnesium supplement for magnesium of 1.7 this afternoon. Cardiology has cleared her for discharge. Her magnesium was likely related to poor oral intake. Patient has been cleared by consulting physicians for discharge. She is medically stable for discharge. Patient had multiple medications discontinued as stated above. Blood pressure and blood sugars and kidney functions have shown improvement. We 'll monitor in the outpatient setting. We'll have her follow-up with Dr. Olmstead in 1 week and cardiology in 2 weeks. I performed an examination of the patient and discussed their management with the physician Gas Dispatcher. I have reviewed the Physician Gas Dispatcher's notes and agree with the documented findings and plan of care Patient Condition at Discharge: Stable Plan - Discharge Summary Discharge Rx Participant: No New Discharge Prescriptions: New Aspirin 81 mg PO DAILY #30 chew Metoprolol Tartrate [Lopressor] 12.5 mg PO BID #60 tab Continue Ergocalciferol (Vitamin D2) [Vitamin D2] 50,000 unit PO Q7D Discontinued metFORMIN HCL [Glucophage] 500 mg PO BID glipiZIDE [Glucotrol] 5 mg PO AC-BID Meloxicam [Mobic] 7.5 mg PO BID Lisinopril [Zestril] 20 mg PO DAILY Lisinopril [Prinivil] 20 mg PO DAILY Spironolactone-Hctz 25-25Mg [Aldactazide 25-25Mg] 1 tab PO DAILY Aspirin EC [Ecotrin] 325 mg PO DAILY Allopurinol [Zyloprim] 300 mg PO DAILY Discharge Medication List Ergocalciferol (Vitamin D2) [Vitamin D2] 50,000 unit PO Q7D 10/22/17 [History] Aspirin 81 mg PO DAILY #30 chew 10/26/17 [Rx] Metoprolol Tartrate [Lopressor] 12.5 mg PO BID #60 tab 10/26/17 [Rx] Follow up Appointment(s)/Referral(s): Warner Javier MD [STAFF PHYSICIAN] - 2 Weeks Al Olmstead MD [Primary Care Provider] - 1 Week Patient Instructions/Handouts: Acute Kidney Injury (DC), Metabolic Acidosis ( GEN) Activity/Diet/Wound Care/Special Instructions: Diet: diabetic, cardiac Activity as tolerated Discharge Disposition: HOME SELF-CARE
[2017-10-26 16:05] VITALS: BP 107/57; PULSE 70; RESP 18; TEMP 98.2
[2017-10-27] MEDS ORDERED: ASPIRIN 81 MG PO SCH (09:00)
== END 2017-10-26 16:55 | disposition home or self-care (01) | DRG 682 ==
LOC: EC 11:11 → 6ICU 13:58 → 3SUR 10-25 12:29
PROVIDERS: ADMIT Internal Medicine; ATTEND Internal Medicine
DX: N17.9 Acute kidney failure, unspecified (principal); K85.90 Acute pancreatitis without necrosis or infection, unspecified; R57.1 Hypovolemic shock; E87.2 Acidosis; N39.0 Urinary tract infection, site not specified; Z68.43 Body mass index [BMI] 50.0-59.9, adult; D69.6 Thrombocytopenia, unspecified; E11.649 Type 2 diabetes mellitus with hypoglycemia without coma; E66.01 Morbid (severe) obesity due to excess calories; E78.5 Hyperlipidemia, unspecified; E83.39 Other disorders of phosphorus metabolism; E83.42 Hypomagnesemia; E86.0 Dehydration; E87.5 Hyperkalemia; I10 Essential (primary) hypertension; I49.3 Ventricular premature depolarization; K21.9 Gastro-esophageal reflux disease without esophagitis; K80.20 Calculus of gallbladder without cholecystitis without obstruction; M10.9 Gout, unspecified; R19.7 Diarrhea, unspecified; R68.0 Hypothermia, not associated with low environmental temperature; T46.4X5A Adverse effect of angiotensin-converting-enzyme inhibitors, initial encounter; T39.395A Adverse effect of other nonsteroidal anti-inflammatory drugs [NSAID], initial encounter; Z79.82 Long term (current) use of aspirin; Z79.84 Long term (current) use of oral hypoglycemic drugs; Z79.899 Other long term (current) drug therapy; Z88.1 Allergy status to other antibiotic agents; Z88.0 Allergy status to penicillin; Z92.21 Personal history of antineoplastic chemotherapy; Z90.49 Acquired absence of other specified parts of digestive tract; Z87.442 Personal history of urinary calculi; Z85.038 Personal history of other malignant neoplasm of large intestine; Z83.3 Family history of diabetes mellitus; Y92.009 Unspecified place in unspecified non-institutional (private) residence as the place of occurrence of the external cause
CPT/HCPCS: 36415; 71045; 71046; 76705; 76770; 80048; 80053; 81001; 82150; 83036; 83605; 83690; 83735; 84100; 84132; 84478; 84484; 85025; 87086; 87324; 93005; 93306; 94760; 96361; 96374; 99291

== ENCOUNTER → 2019-03-22 | Outpatient (CLI) | payer MEDICARE ==
--- NOTE | 2019-03-22 12:39 | XR ---
EXAMINATION TYPE: XR foot complete LT DATE OF EXAM: 03/22/2019 CLINICAL HISTORY: pain TECHNIQUE: Frontal, lateral and oblique images of the left foot are obtained. COMPARISON: None. FINDINGS: Angulated cortex at the level of the neck of the fifth metatarsal. Nondisplaced fracture is difficult to exclude. Correlate clinically with point tenderness. The joint spaces appear within no rmal limits. The overlying soft tissue appears unremarkable. IMPRESSION: Angulated cortex at the level of the neck of the fifth metatarsal. Nondisplaced fracture is difficult to exclude. Correlate clinically with point tenderness.
== END | disposition home or self-care (01) ==
LOC: RADXRMAIN 11:17
PROVIDERS: ATTEND Internal Medicine
DX: M89.8X7 Other specified disorders of bone, ankle and foot (principal)

== ENCOUNTER → 2020-06-07 | Outpatient (CLI) | payer MEDICARE ==
--- NOTE | 2020-06-08 13:37 | MM ---
Reason for exam: screening (asymptomatic). Last mammogram was performed 6 years ago. History: Patient is postmenopausal, has history of colon cancer at age 50, and had first child at age 36. Took hormonal contraceptives for 3 years. Physical Findings: A clinical breast exam by your physician is recommended on an annual basis and results should be correlated with mammographic findings. MG 3D Screening Mammo W/Cad Bilateral CC and MLO view(s) were taken. Prior study comparison: June 12, 2014, bilateral MG screening mammo w CAD. October 28, 2010, bilateral digital screening mammo w/CAD. There are scattered fibroglandular densities. Finding #1: There is an obscured oval mass in the upper quadrant, middle position of the right breast. Finding #2: There are typically benign vascular, dystrophic, round calcifications in both breasts. ASSESSMENT: Incomplete: need additional imaging evaluation, BI-RAD 0 RECOMMENDATION: Special view mammogram of the right breast. If lesion persists on supplemental views, image directed ultrasound is recommended. [facility] will attempt to contact patient to return for supplemental views and ultrasound if indicated.
== END | disposition home or self-care (01) ==
LOC: RADMAMWWP 12:21
PROVIDERS: ATTEND Internal Medicine
DX: Z12.31 Encounter for screening mammogram for malignant neoplasm of breast (principal)
CPT/HCPCS: 77063; 77067

== ENCOUNTER → 2020-06-22 | Outpatient (CLI) | payer MEDICARE ==
--- NOTE | 2020-06-22 11:40 | MM ---
Reason for exam: additional evaluation requested from abnormal screening. Last mammogram was performed less than 1 month ago. History: Patient is postmenopausal, has history of colon cancer at age 50, and had first child at age 36. Took hormonal contraceptives for 3 years. Physical Findings: Nurse did not find any significant physical abnormalities on exam. MG 3D Work Up W/Cad RT Spot compression MLO and LM view(s) were taken of the right breast. Prior study comparison: June 07, 2020, bilateral MG 3d screening mammo w/cad. June 12, 2014, bilateral MG screening mammo w CAD. The breast tissue is heterogeneously dense. This may lower the sensitivity of mammography. Focal asymmetry outer upper right breast disperses on compression. These results were verbally communicated with the patient and result sheet given to the patient on 06/22/20. ASSESSMENT: Probably benign, BI-RAD 3 RECOMMENDATION: Follow-up diagnostic mammogram of the right breast in 6 months.
== END | disposition home or self-care (01) ==
LOC: RADMAMWWP 10:18
PROVIDERS: ATTEND Internal Medicine
DX: R92.8 Other abnormal and inconclusive findings on diagnostic imaging of breast (principal)
CPT/HCPCS: 77065; G0279; 77061

== ENCOUNTER 2021-01-10 06:43 | Day surgery (SDC) | payer MEDICARE ==
[2021-01-08 11:18] VITALS: BMI 61.5
[~2021-01-10 06:43] MED LIST: LACTATED RINGERS 1,000 ML IV SCH; SODIUM CHLORIDE 0.9% 1,000 ML IV SCH
[2021-01-10 07:17] VITALS: TEMP 98.1
[2021-01-10 07:43] VITALS: RESP 16
[2021-01-10] MEDS ORDERED: LIDOCAINE 1% INJ 10MG/ML (20 ML MDV) ONE (07:43)
[2021-01-10] MEDS ORDERED: PROPOFOL 10 MG/ML 20 ML VIAL IV ONE (07:43)
[2021-01-10] MEDS ORDERED: KETAMINE 10 MG/ML 20 ML VIAL ONE (07:43)
[2021-01-10] MEDS ORDERED: SODIUM CHLORIDE 0.9% 1,000 ML IV SCH (08:00)
[2021-01-10] MEDS ORDERED: lisinopriL 5 MG TAB PO SCH (09:00)
[2021-01-10] MEDS ORDERED: METOPROLOL TARTRATE 50 MG TAB PO SCH (09:00)
[2021-01-10] MEDS ORDERED: POTASSIUM PO SCH (09:00)
[2021-01-10] MEDS ORDERED: RIVAROXABAN 20 MG TAB PO SCH (09:00)
[2021-01-10] MEDS ORDERED: FUROSEMIDE 20 MG TAB PO SCH (09:00)
[2021-01-10] MEDS ORDERED: MELOXICAM 7.5 MG TAB PO SCH (09:00)
[2021-01-10 09:49] VITALS: BP 122/67
[2021-01-10 09:50] VITALS: PULSE 64
--- NOTE | 2021-01-10 10:55 | ECHOT ---
TRANSESOPHAGEAL ECHOCARDIOGRAM INDICATION: Atrial fibrillation. PROCEDURE DESCRIPTION: After explaining the procedure to the patient, its risks and complications, her blood pressure, heart rate, and O2 saturation were monitored. The throat was sprayed with Cetacaine. She received sedation per Anesthesia Department. The probe was introduced in the esophagus without difficulty. Images were obtained. Following that, the probe was removed. There was no immediate complication. FINDINGS: Biatrial enlargement was noted. Left atrial appendage was normal. Left ventricular size is normal. Left ventricular systolic function is preserved with ejection fraction of 50% to 55%. The aortic valve revealed fibrocalcific change with aortic cusp with preserved opening. Mitral annulus calcification was noted. The tricuspid valve appears to be normal. Descending thoracic aorta revealed mild atherosclerotic changes. No pericardial effusion was noted. Contrast bubble study revealed no shunting across the interatrial septum. Pulse wave and color Doppler were obtained and revealed moderate mitral with mild tricuspid and aortic regurgitation. There was no shunting by color Doppler study. CONCLUSION: 1. Biatrial enlargement with normal appearance of the left atrial appendage. 2. Normal left ventricular size with an ejection fraction of 50% to 55%. 3. Aortic sclerosis with mild aortic regurgitation. 4. Mitral annulus calcification with moderate mitral regurgitation. 5. Mild tricuspid regurgitation. 6. Mild atherosclerotic changes of the descending thoracic aorta. MMODL / IJN: [id number] / RASHEL
--- NOTE | 2021-01-10 13:11 | PCN ---
PROCEDURE NOTE CARDIOVERSION PROCEDURE NOTE: INDICATION: Atrial fibrillation. PROCEDURE DESCRIPTION: After explaining the procedure to the patient, its risks and complications, and obtaining a sedated state per Anesthesia Department, a synchronized biphasic cardioversion using 100 joules was performed with rastafarian normal sinus rhythm. There was no immediate complication. LANE / JUSTICE: [id number] /
[2021-01-14] MEDS ORDERED: ERGOCALCIFEROL 1,250 MCG (50,000 IU) CAPSULE PO SCH (08:00)
== END 2021-01-10 09:57 | disposition home or self-care (01) ==
LOC: CATHCVL 06:43
PROVIDERS: ATTEND Internal Medicine Interventional Cardiology
DX: I48.91 Unspecified atrial fibrillation (principal); I08.3 Combined rheumatic disorders of mitral, aortic and tricuspid valves; I70.0 Atherosclerosis of aorta; I10 Essential (primary) hypertension; E11.9 Type 2 diabetes mellitus without complications; I42.8 Other cardiomyopathies; Z79.899 Other long term (current) drug therapy; Z79.01 Long term (current) use of anticoagulants; Z87.891 Personal history of nicotine dependence; E66.01 Morbid (severe) obesity due to excess calories; Z85.038 Personal history of other malignant neoplasm of large intestine
CPT/HCPCS: 93312; 93320; 93325; 92960; J2001; J2704